=== PATIENT | male | born 1945 | race Caucasian/White ===

== ENCOUNTER 2016-09-30 13:53 | Emergency (ER) | payer OTHER ==
[2016-05-01 12:07] VITALS: Ht 177.8 cm; Wt 68.9 kg
[~2016-09-30] VITALS: Ht 177.8 cm; Wt 68.9 kg
[~2016-09-30 13:53] MED LIST: ACET1TAB25 PO; ALBU2.5V7 INH; CORCR10 PO; FURO-149 PO; GLU500 PO; LISI-209 PO; RIZA10TA21 PO; ZOLP10TA2 PO
[2016-09-30 13:57] VITALS: BP 157/95; PULSE 88; RESP 16; TEMP 97.5; O2SAT 93; O2SAT 98
[2016-09-30] MEDS ORDERED: methylPREDNISolone SOD SUCC/PF 62.5 MG/ML VIAL IVP ONE (14:00)
[2016-09-30] MEDS ORDERED: IPRATROPIUM/ALBUTEROL SULFATE 3 ML AMPUL.NEB INH ONE (14:00)
--- NOTE | 2016-09-30 14:01 | NUR ---
PLACED IN BED 1
--- NOTE | 2016-09-30 14:04 | NUR ---
Patient brought in by with chief complaint of shortness of breath this morning. Patient is awake,alert, and oriented x 4, complaining of short of breath, presents labored breathing, O2SAT 92%. No other complaints/injury per patient, none noted.
--- NOTE | 2016-09-30 14:06 | NUR ---
Dr. Ocampo at bedside examining patient. New orders received.
[2016-09-30 14:45] LABS: BASOPHILS % (AUTO) 0.5 % (0.0-2.0); EOSINOPHILS # (AUTO) 2.5 K/uL (0.0-0.4); EOSINOPHILS % (AUTO) 31.5 % (0.0-4.0); HEMATOCRIT 43.8 % (36-54); HEMOGLOBIN 14.6 g/dL (14.0-18.0); LYMPHOCYTES % (AUTO) 12.2 % (20.5-51.5); MEAN CORPUSCULAR HEMOGLOBIN 32 pg (27-31); MEAN CORPUSCULAR HGB CONC 33 % (32-36); MEAN CORPUSCULAR VOLUME 97 fL (79.0-98.0); MONOCYTES # (AUTO) 0.5 K/uL (0.0-1.0); MONOCYTES % (AUTO) 6.1 % (1.7-9.3); NEUTROPHILS % (AUTO) 49.7 % (40.0-70.0); PLATELET COUNT (AUTO) 231 K/uL (130-430); RED BLOOD CELL COUNT(AUTO) 4.53 MIL/uL (4.2-6.2); RED CELL DISTRIBUTION WIDTH 12.2 % (9.0-15.0)
[2016-09-30 14:49] LABS: CALCIUM 9.8 mg/dL (8.4-11.0); CREATININE 1.31 mg/dL (0.55-1.30); POTASSIUM 4.3 mmol/L (3.5-5.1)
[2016-09-30 14:51] LABS: INR 1.1 (0.80-1.20); PROTHROMBIN TIME 11.7 SECS (9.5-12.5)
[2016-09-30 14:53] LABS: ALBUMIN 4.5 g/dL (3.4-4.8); TOTAL BILIRUBIN 0.5 mg/dL (0.0-1.0); TOTAL PROTEIN, SERUM 8.6 g/dL (6.4-8.3)
--- NOTE | 2016-09-30 14:56 | NUR ---
Medicated as ordered.
[2016-09-30 15:30] VITALS: BP 157/95; PULSE 88; RESP 16; TEMP 97.5; O2SAT 93
--- NOTE | 2016-09-30 17:35 | NUR ---
Patient given written and verbal discharge instructions and verbalizes understanding. ER MD discussed with patient the results and treatment provided. Given copies of tests performed in ER. Patient in stable condition. ID arm band removed. IV catheter removed intact and dressing applied, no active bleeding. Rx of proair, azithromycin,and prednisone given. Opportunity for questions provided and answered.
== END 2016-09-30 15:30 | disposition home or self-care (01) ==
LOC: SED 13:53
DX: J44.1 Chronic obstructive pulmonary disease with (acute) exacerbation (principal); E11.9 Type 2 diabetes mellitus without complications; I10 Essential (primary) hypertension; Z86.73 Personal history of transient ischemic attack (TIA), and cerebral infarction without residual deficits
CPT/HCPCS: 36415; 71010; 80053; 83605; 83880; 84484; 85025; 85379; 85610; 85730; 87040; 93005; 94640; 96374; 99285; J2930

== ENCOUNTER 2016-10-19 18:25 | Emergency (ER) | payer OTHER ==
[~2016-10-19] VITALS: Ht 175.3 cm; Wt 66.7 kg
[~2016-10-19 18:25] MED LIST changes: -ACET1TAB25 PO
[2016-10-19 18:29] VITALS: BP_SYST 154
[2016-10-19 18:58] LABS: HEMATOCRIT 39.5 % (36-54); HEMOGLOBIN 13.1 g/dL (14.0-18.0); MEAN CORPUSCULAR HEMOGLOBIN 32 pg (27-31); MEAN CORPUSCULAR HGB CONC 33 % (32-36); MEAN CORPUSCULAR VOLUME 96 fL (79.0-98.0); PLATELET COUNT (AUTO) 269 K/uL (130-430); RED BLOOD CELL COUNT(AUTO) 4.12 MIL/uL (4.2-6.2); RED CELL DISTRIBUTION WIDTH 11.9 % (9.0-15.0); WHITE BLOOD COUNT (AUTO) 6.5 K/uL (4.8-10.8)
[2016-10-19] MEDS ORDERED: methylPREDNISolone SOD SUCC/PF 62.5 MG/ML VIAL IVP ONE (19:00)
[2016-10-19] MEDS ORDERED: IPRATROPIUM/ALBUTEROL SULFATE 3 ML AMPUL.NEB INH ONE ×2 (19:00→20:15)
[2016-10-19 19:04] LABS: BLOOD GAS PH 7.422 (7.350-7.450)
[2016-10-19 19:05] LABS: ABG TOTAL HEMOGLOBIN 14.2 G/dL (12.0-18.0); BLOOD GAS BASE EXCESS 2.2 mmol/L (-3.0-3.0); BLOOD GAS COHb% 0.9 % (0.5-1.5); BLOOD GAS HHB 10.8 % (0.0-6.0)
[2016-10-19 19:12] LABS: CALCIUM 9.2 mg/dL (8.4-11.0); CREATININE 1.48 mg/dL (0.55-1.30); POTASSIUM 4.2 mmol/L (3.5-5.1)
[2016-10-19 19:15] LABS: ATYPICAL LYMPHOCYTES % 0 % (0-0); BAND % (MANUAL) 0 % (0-6); BASOPHILS % (MANUAL) 0 % (0-2); EOSINOPHILS % (MANUAL) 21 % (0-7); LYMPHOCYTES % (MANUAL) 18 % (20-46); MONOCYTES % (MANUAL) 5 % (0-11)
[2016-10-19 19:16] LABS: ALBUMIN 4.2 g/dL (3.4-4.8); TOTAL BILIRUBIN 0.4 mg/dL (0.0-1.0); TOTAL PROTEIN, SERUM 7.7 g/dL (6.4-8.3)
[2016-10-19 21:05] VITALS: BP_SYST 135
== END 2016-10-19 21:05 | disposition home or self-care (01) ==
LOC: SED 18:25
DX: J44.1 Chronic obstructive pulmonary disease with (acute) exacerbation (principal); E11.9 Type 2 diabetes mellitus without complications; I10 Essential (primary) hypertension; Z86.73 Personal history of transient ischemic attack (TIA), and cerebral infarction without residual deficits; Z87.891 Personal history of nicotine dependence
CPT/HCPCS: 36415; 36600; 71010; 80053; 82803; 83605; 83880; 84484; 85007; 85027; 87040; 93005; 94640; 96374; 99285; J2930

== ENCOUNTER 2017-02-18 10:52 | Emergency (ER) | payer OTHER ==
[~2017-02-18] VITALS: Ht 177.8 cm; Wt 73.0 kg
[2017-02-18 11:00] VITALS: BP_SYST 149
--- NOTE | 2017-02-18 11:06 | NUR ---
Placed in room 03 . Placed on radiation monitor, blood pressure machine and pulse oximeter. To gown for exam. Side rails up. Report given to Henry.
--- NOTE | 2017-02-18 11:15 | NUR ---
BEST Echavarria at bedside examining patient.
[2017-02-18] MEDS ORDERED: IPRATROPIUM/ALBUTEROL SULFATE 3 ML AMPUL.NEB ONE (11:19)
--- NOTE | 2017-02-18 11:22 | NUR ---
Medication reconciliation completed with information provided by patient. Any prior medication reconciliation on file was reviewed and corrected.
--- NOTE | 2017-02-18 11:25 | NUR ---
Pt brought by self, A&Ox4, pt c/o cough and SOB for 1.5 days, VS WNL, cap refill <3, skin pink and warm ,folows commands.
[2017-02-18] MEDS ORDERED: ALBUTEROL SULFATE 0.083% 2.5 MG/3 ML VIAL.NEB INH ONE (11:45)
[2017-02-18] MEDS ORDERED: IPRATROPIUM BROM 0.5 MG/2.5 ML VIAL.NEB (ATROVENT) INH ONE (11:45)
--- NOTE | 2017-02-18 12:01 | NUR ---
Pt placed on O2 2L as ordered by MD.
[2017-02-18 12:03] LABS: BASOPHILS # (AUTO) 0.1 K/uL (0.0-0.2); BASOPHILS % (AUTO) 1.3 % (0.0-2.0); EOSINOPHILS # (AUTO) 0.1 K/uL (0.0-0.4); EOSINOPHILS % (AUTO) 1.4 % (0.0-4.0); HEMATOCRIT 39.8 % (36-54); HEMOGLOBIN 13.1 g/dL (14.0-18.0); LYMPHOCYTES # (AUTO) 0.9 K/uL (1.0-5.5); LYMPHOCYTES % (AUTO) 11.2 % (20.5-51.5); MEAN CORPUSCULAR HEMOGLOBIN 33 pg (27-31); MEAN CORPUSCULAR HGB CONC 33 % (32-36); MEAN CORPUSCULAR VOLUME 100 fL (79.0-98.0); MONOCYTES # (AUTO) 0.6 K/uL (0.0-1.0); MONOCYTES % (AUTO) 6.6 % (1.7-9.3); NEUTROPHILS # (AUTO) 6.7 K/uL (1.8-7.7); NEUTROPHILS % (AUTO) 79.5 % (40.0-70.0); PLATELET COUNT (AUTO) 224 K/uL (130-430); RED BLOOD CELL COUNT(AUTO) 3.97 MIL/uL (4.2-6.2); WHITE BLOOD COUNT (AUTO) 8.4 K/uL (4.8-10.8)
[2017-02-18 12:12] LABS: CALCIUM 9.1 mg/dL (8.4-11.0); CREATININE 1.4 mg/dL (0.55-1.30)
[2017-02-18 12:14] LABS: ALBUMIN 3.8 g/dL (3.4-4.8); TOTAL BILIRUBIN 0.9 mg/dL (0.0-1.0)
--- NOTE | 2017-02-18 12:15 | NUR ---
Pt informed of pending admission. Pt declined to stay. Dr. Cardoso at bedside to discuss AMA.
[2017-02-18] MEDS ORDERED: LEVOFLOXACIN 500 MG/D5W 100 ML IV ONE (12:30)
[2017-02-18] MEDS ORDERED: NACL 0.9% 1,000 ML IV ONE (12:30)
[2017-02-18] MEDS ORDERED: LEVOFLOXACIN 500 MG TABLET PO ONE (13:00)
--- NOTE | 2017-02-18 13:00 | NUR ---
Pt's medication cancelled and RX to be given w/ [facility].
--- NOTE | 2017-02-18 13:20 | NUR ---
Patient does not wish to proceed with medical care recommended by . Patient given information related to possible complications, up to and including , which could occur as a result of leaving hospital at this time. Patient verbalizes understanding of risks involved leaving against medical advice. Patient has signed AMA form.
[2017-02-18 14:37] VITALS: BP_SYST 149
== END 2017-02-18 13:20 | disposition left against medical advice (07) ==
LOC: SED 10:52
DX: J18.9 Pneumonia, unspecified organism (principal); J44.9 Chronic obstructive pulmonary disease, unspecified; E11.9 Type 2 diabetes mellitus without complications; I10 Essential (primary) hypertension; Z86.73 Personal history of transient ischemic attack (TIA), and cerebral infarction without residual deficits; Z79.899 Other long term (current) drug therapy
CPT/HCPCS: 36415; 71010; 80053; 83605; 83880; 84484; 85025; 87040-TC; 93005; 94640; 99285

== ENCOUNTER 2017-03-26 17:59 | Emergency (ER) | payer OTHER ==
[~2017-03-26] VITALS: Ht 177.8 cm; Wt 67.1 kg
[~2017-03-26 17:59] MED LIST changes: -CORCR10 PO; -FURO-149 PO; -LISI-209 PO
[2017-03-26 18:01] VITALS: BP_SYST 135
[2017-03-26 18:37] LABS: BASOPHILS # (AUTO) 0.2 K/uL (0.0-0.2); BASOPHILS % (AUTO) 2.5 % (0.0-2.0); EOSINOPHILS % (AUTO) 0.2 % (0.0-4.0); HEMATOCRIT 40.8 % (36-54); HEMOGLOBIN 13.3 g/dL (14.0-18.0); LYMPHOCYTES # (AUTO) 0.7 K/uL (1.0-5.5); LYMPHOCYTES % (AUTO) 8.1 % (20.5-51.5); MEAN CORPUSCULAR HEMOGLOBIN 31 pg (27-31); MEAN CORPUSCULAR HGB CONC 33 % (32-36); MEAN CORPUSCULAR VOLUME 96 fL (79.0-98.0); MONOCYTES # (AUTO) 0.6 K/uL (0.0-1.0); MONOCYTES % (AUTO) 6.9 % (1.7-9.3); NEUTROPHILS # (AUTO) 6.9 K/uL (1.8-7.7); NEUTROPHILS % (AUTO) 82.3 % (40.0-70.0); PLATELET COUNT (AUTO) 244 K/uL (130-430); RED BLOOD CELL COUNT(AUTO) 4.27 MIL/uL (4.2-6.2); RED CELL DISTRIBUTION WIDTH 14.5 % (9.0-15.0); WHITE BLOOD COUNT (AUTO) 8.4 K/uL (4.8-10.8)
[2017-03-26] MEDS ORDERED: ALBUTEROL SULFATE 0.083% 2.5 MG/3 ML VIAL.NEB INH ONE (18:45)
[2017-03-26] MEDS ORDERED: methylPREDNISolone SOD SUCC/PF 62.5 MG/ML VIAL IVP ONE (18:45)
[2017-03-26] MEDS ORDERED: IPRATROPIUM BROM 0.5 MG/2.5 ML VIAL.NEB (ATROVENT) INH ONE (18:45)
[2017-03-26 18:59] LABS: CREATININE 1.27 mg/dL (0.55-1.30); POTASSIUM 4.5 mmol/L (3.5-5.1)
[2017-03-26 19:09] LABS: ALBUMIN 3.6 g/dL (3.4-4.8); TOTAL BILIRUBIN 1.4 mg/dL (0.0-1.0)
[2017-03-26] MEDS ORDERED: ONDANSETRON 4 MG ODT TAB PO ONE (19:45)
== END 2017-03-26 19:52 | disposition left against medical advice (07) ==
LOC: SED 17:59
DX: J44.1 Chronic obstructive pulmonary disease with (acute) exacerbation (principal); E11.9 Type 2 diabetes mellitus without complications; I10 Essential (primary) hypertension
CPT/HCPCS: 36415; 36600; 71010; 80053; 82803; 83880; 84484; 85025; 93005; 94640; 96374; 99285; J2930

== ENCOUNTER 2017-04-27 14:54 | Emergency (ER) | payer OTHER ==
[~2017-04-27] VITALS: Ht 177.8 cm; Wt 81.6 kg
[2017-04-27 15:15] VITALS: BP_SYST 114
[2017-04-27] MEDS ORDERED: fentaNYL CITRATE/PF 100 MCG/2 ML AMP IM ONE (16:00)
[2017-04-27 16:29] LABS: BILIRUBIN,URINE NEGATIVE (NEGATIVE); BLOOD, URINE NEGATIVE (NEGATIVE); CLARITY/URINE CLEAR (CLEAR); COLOR,URINE YELLOW (YELLOW); GLUCOSE,URINE NEGATIVE (NEGATIVE); KETONES,URINE NEGATIVE (NEGATIVE); LEUKOCYTE ESTERASE ,URINE NEGATIVE (NEGATIVE); NITRITE, URINE NEGATIVE (NEGATIVE); PROTEIN URINE NEGATIVE (NEGATIVE); UROBILINOGEN,URINE 0.2 (0.2-1.0)
[2017-04-27] MEDS ORDERED: FUROSEMIDE 20 MG TABLET PO ONE (16:45)
[2017-04-27 17:38] VITALS: BP_SYST 125
== END 2017-04-27 17:38 | disposition home or self-care (01) ==
LOC: SED 14:54
DX: R33.9 Retention of urine, unspecified (principal); N50.89 Other specified disorders of the male genital organs; L03.115 Cellulitis of right lower limb; J44.9 Chronic obstructive pulmonary disease, unspecified; E11.9 Type 2 diabetes mellitus without complications; I10 Essential (primary) hypertension; Z86.73 Personal history of transient ischemic attack (TIA), and cerebral infarction without residual deficits
CPT/HCPCS: 51702; 81003; 96374; 99284; J3010

== ENCOUNTER 2017-07-27 21:54 | Emergency (ER) | payer OTHER ==
[~2017-07-27] VITALS: Ht 175.3 cm; Wt 73.0 kg
[~2017-07-27 21:54] MED LIST changes: +ASA81 PO; +CARV12.548 PO; +DOXY100T2 PO; +FURO-149 PO; +GABA-529 PO; -GLU500 PO; +LIP10 PO; +LISI-600 PO; +METF-509 PO; +ONDA4TAB5 PO; +RANI-281 PO; -RIZA10TA21 PO; +TRAM50TA92 PO; +TYC3 PO; -ZOLP10TA2 PO
[2017-07-27 22:00] VITALS: BP_SYST 124
--- NOTE | 2017-07-27 22:04 | NUR ---
Patient triaged and placed in waiting room. VSS and patient appears in no acute distress at this time. Accompanied by , awaiting available bed, and MD notified of need for MSE.
--- NOTE | 2017-07-27 22:12 | NUR ---
Pt states that he was recently discharged from the hospital and today family stated blood sugar was 550 when they checked it. Pt states he is in no pain or discomfort. Will continue to monitor. No distress noted.
--- NOTE | 2017-07-27 22:15 | NUR ---
Patient to ER bed 01 to gown for evaluation. Side rails up. Report given to JONATAN Nowak
[2017-07-27] MEDS ORDERED: NACL 0.9% 1,000 ML IV ONE (22:22)
--- NOTE | 2017-07-27 22:30 | NUR ---
# 20 gauge angiocath placed to R hand. Use of asceptic technique. Opsite placed over site. Blood return noted. Flushed with 10 cc of normal saline. No evidence of infiltration noted. Patient tolerated well.
--- NOTE | 2017-07-27 22:40 | NUR ---
ER Dr. Christina at bedside examining patient.
[2017-07-27 22:59] LABS: WHITE BLOOD COUNT (AUTO) 6.5 K/uL (4.8-10.8)
[2017-07-27 23:04] LABS: HEMATOCRIT 33.5 % (36-54); MEAN CORPUSCULAR HEMOGLOBIN 33 pg (27-31); MEAN CORPUSCULAR HGB CONC 33 % (32-36); MEAN CORPUSCULAR VOLUME 100 fL (79.0-98.0); PLATELET COUNT (AUTO) 99 K/uL (130-430); RED BLOOD CELL COUNT(AUTO) 3.35 MIL/uL (4.2-6.2); RED CELL DISTRIBUTION WIDTH 20.2 % (9.0-15.0)
[2017-07-27 23:16] LABS: ANION GAP 11 (5-15); CALCIUM 8.4 mg/dL (8.4-11.0); CHLORIDE 91 mmol/L (98-107); CREATININE 1.83 mg/dL (0.55-1.30); POTASSIUM 4.5 mmol/L (3.5-5.1); SODIUM SERUM 130 mmol/L (136-145); UREA NITROGEN, BLOOD 80 mg/dL (8-21)
[2017-07-27 23:22] LABS: ALANINE AMINOTRANSFERASE 30 U/L (12-78); ALBUMIN 2.9 g/dL (3.4-4.8); ASPARTATE AMINOTRANSFERASE 20 U/L (10-37); TOTAL BILIRUBIN 0.7 mg/dL (0.0-1.0)
[2017-07-27 23:26] LABS: GLUCOSE 522 mg/dL (70-99)
[2017-07-27 23:27] LABS: ACETONE, SERUM NEGATIVE (NEGATIVE)
[2017-07-27 23:29] LABS: BAND % (MANUAL) 6 % (0-6); LYMPHOCYTES % (MANUAL) 5 % (20-46)
[2017-07-27 23:30] LABS: ATYPICAL LYMPHOCYTES % 0 % (0-0); BASOPHILS % (MANUAL) 0 % (0-2); EOSINOPHILS % (MANUAL) 0 % (0-7); MONOCYTES % (MANUAL) 2 % (0-11)
[2017-07-27] MEDS ORDERED: INSULIN REGULAR, HUMAN 10 UNITS/0.1 ML INJ IVP ONE (23:45)
[2017-07-27] MEDS ORDERED: PIPERACILLIN/TAZOBACTAM 3.375 GM/VIAL (ZOSYN) IV ONE ×2 (23:56→23:57)
[2017-07-28] MEDS ORDERED: PIPERACILLIN/TAZO 3.375 GM in NS 50 ML IV ONE ×2
[2017-07-28] MEDS ORDERED: INSULIN REGULAR, HUMAN 10 UNITS/0.1 ML INJ IVP ONE ×2 (01:30→01:45)
[2017-07-28 02:24] VITALS: BP_SYST 118
--- NOTE | 2017-07-28 02:24 | NUR ---
Patient given written and verbal discharge instructions and verbalizes understanding. ER MD discussed with patient the results and treatment provided. Patient in stable condition. ID arm band removed. IV catheter removed intact and dressing applied, no active bleeding. Rx of Augmentin given. Patient educated on pain management and to follow up with PMD. Pain Scale 0/10. Opportunity for questions provided and answered. Medication side effect fact sheet provided.
== END 2017-07-28 02:24 | disposition home or self-care (01) ==
LOC: SED 21:54
DX: E11.65 Type 2 diabetes mellitus with hyperglycemia (principal); J18.9 Pneumonia, unspecified organism; R79.89 Other specified abnormal findings of blood chemistry; J44.9 Chronic obstructive pulmonary disease, unspecified; I10 Essential (primary) hypertension; Z86.73 Personal history of transient ischemic attack (TIA), and cerebral infarction without residual deficits; Z79.82 Long term (current) use of aspirin; Z79.899 Other long term (current) drug therapy; Z88.8 Allergy status to other drugs, medicaments and biological substances
CPT/HCPCS: 36415; 71045; 80053; 82009; 82962; 84484; 85007; 85027; 87040; 96361; 96365; 96375; 96376; 99285; J2543; J1815

== ENCOUNTER 2018-01-14 13:39 | Inpatient (IN) | payer OTHER ==
[~2018-01-14] VITALS: Ht 175.3 cm; Wt 65.8 kg
[~2018-01-14 13:39] MED LIST changes: +DOCU-144 PO; -DOXY100T2 PO; +ELET20TA PO; -GABA-529 PO; +INSU100V9 SUBCUT; -LISI-600 PO; +METO2.5T6 PO; -ONDA4TAB5 PO; -RANI-281 PO; +SACU1TAB PO; +TAMS-11 PO; +[UNRECOGNIZED DRUG - OTHER] TP
[2018-01-14 13:40] VITALS: BP_SYST 95
[2018-01-14] MEDS ORDERED: ALBUTEROL SULFATE 0.083% 2.5 MG/3 ML VIAL.NEB INH ONE ×2 (14:00→17:15)
[2018-01-14] MEDS ORDERED: LEVOFLOXACIN 500 MG/D5W 100 ML IV ONE (14:00)
[2018-01-14 14:21] LABS: BASOPHILS # (AUTO) 0.1 K/uL (0.0-0.2); BASOPHILS % (AUTO) 1.7 % (0.0-2.0); EOSINOPHILS # (AUTO) 0.3 K/uL (0.0-0.4); EOSINOPHILS % (AUTO) 9.3 % (0.0-4.0); HEMATOCRIT 36.3 % (36-54); HEMOGLOBIN 11.7 g/dL (14.0-18.0); LYMPHOCYTES # (AUTO) 0.6 K/uL (1.0-5.5); LYMPHOCYTES % (AUTO) 18.6 % (20.5-51.5); MEAN CORPUSCULAR HEMOGLOBIN 34 pg (27-31); MEAN CORPUSCULAR HGB CONC 32 % (32-36); MEAN CORPUSCULAR VOLUME 104 fL (79.0-98.0); MONOCYTES # (AUTO) 0.3 K/uL (0.0-1.0); MONOCYTES % (AUTO) 10.1 % (1.7-9.3); NEUTROPHILS # (AUTO) 2.1 K/uL (1.8-7.7); NEUTROPHILS % (AUTO) 60.3 % (40.0-70.0); PLATELET COUNT (AUTO) 105 K/uL (130-430); RED BLOOD CELL COUNT(AUTO) 3.48 MIL/uL (4.2-6.2); RED CELL DISTRIBUTION WIDTH 14.6 % (9.0-15.0); WHITE BLOOD COUNT (AUTO) 3.4 K/uL (4.8-10.8)
[2018-01-14 14:29] LABS: ANION GAP 9 (5-15); CALCIUM 8.8 mg/dL (8.4-11.0); CHLORIDE 97 mmol/L (98-107); CREATININE 4.41 mg/dL (0.55-1.30); GLUCOSE 112 mg/dL (70-99); POTASSIUM 5.5 mmol/L (3.5-5.1); SODIUM SERUM 134 mmol/L (136-145); UREA NITROGEN, BLOOD 40 mg/dL (8-21)
[2018-01-14 14:34] LABS: ALANINE AMINOTRANSFERASE 11 U/L (12-78); ALBUMIN 3.4 g/dL (3.4-4.8); ASPARTATE AMINOTRANSFERASE 12 U/L (10-37); TOTAL BILIRUBIN 0.7 mg/dL (0.0-1.0)
[2018-01-14 14:39] LABS: INR 1.2 (0.80-1.20); PROTHROMBIN TIME 12.6 SECS (9.5-12.5)
[2018-01-14] MEDS ORDERED: SODIUM BICARBONATE 8.4% JECT 50 MEQ/50 ML SYRINGE IVP ONE (14:45)
[2018-01-14] MEDS ORDERED: CALCIUM CHLORIDE 1 GM/10ML VIAL (13.6 mEq Ca++/VIAL) IVP ONE (14:45)
[2018-01-14] MEDS ORDERED: SODIUM POLYSTYRENE SULFONATE 15 GM/60 ML UDBTL PO ONE (14:45)
[2018-01-14] MEDS ORDERED: INSULIN REGULAR, HUMAN 10 UNITS/0.1 ML INJ IVP ONE (14:45)
[2018-01-14] MEDS ORDERED: DEXTROSE 50% JECT 50 ML DISP.SYRIN IVP ONE (14:45)
[2018-01-14] MEDS ORDERED: ASPI-1155 PO (15:56)
[2018-01-14] MEDS ORDERED: CARV12.548 PO (15:56)
[2018-01-14] MEDS ORDERED: TAMS-11 PO (15:56)
[2018-01-14] MEDS ORDERED: TYC3 PO (15:56)
[2018-01-14] MEDS ORDERED: CALCIUM CHLORIDE 1 GM/10 ML DISP.SYRIN (14 mEq Ca++/SYR) ONE (16:05)
[2018-01-14 16:23] VITALS: BP_SYST 116
[2018-01-14 16:48] VITALS: BP_SYST 116
[2018-01-14] MEDS ORDERED: IPRATROPIUM BROM 0.5 MG/2.5 ML VIAL.NEB (ATROVENT) INH ONE (17:15)
[2018-01-14] MEDS ORDERED: methylPREDNISolone SOD SUCC/PF 62.5 MG/ML VIAL IVP ONE (17:15)
[2018-01-14] MEDS ORDERED: ALBUTEROL SULFATE 0.083% 2.5 MG/3 ML VIAL.NEB INH PRN (17:15)
[2018-01-14] MEDS ORDERED: IPRATROPIUM BROM 0.5 MG/2.5 ML VIAL.NEB (ATROVENT) INH PRN (17:15)
[2018-01-14] MEDS ORDERED: HEPARIN SODIUM,PORCINE 5000 UNITS/ML VIAL IVP ONE (17:30)
[2018-01-14] MEDS: cefTRIAXone 1 GM in D5W 50 ML IV SCH (17:56)
[2018-01-14 20:00] VITALS: BP_SYST 120
[2018-01-14] MEDS: ALBUTEROL SULFATE 0.083% 2.5 MG/3 ML VIAL.NEB INH SCH (20:02)
[2018-01-14] MEDS: IPRATROPIUM BROM 0.5 MG/2.5 ML VIAL.NEB (ATROVENT) INH SCH (20:03)
[2018-01-14] MEDS: AZITHROMYCIN 500 MG in NS 250 ML IV SCH (22:01)
[2018-01-14] MEDS: methylPREDNISolone SOD SUCC/PF 62.5 MG/ML VIAL IVP SCH (22:01)
[2018-01-15] MEDS: IPRATROPIUM BROM 0.5 MG/2.5 ML VIAL.NEB (ATROVENT) INH SCH ×3 (00:30→19:26)
[2018-01-15] MEDS: ALBUTEROL SULFATE 0.083% 2.5 MG/3 ML VIAL.NEB INH SCH ×4 (00:30→19:25)
[2018-01-15 00:50] VITALS: BP_SYST 131
[2018-01-15] MEDS: methylPREDNISolone SOD SUCC/PF 62.5 MG/ML VIAL IVP SCH ×3 (05:57→22:04)
[2018-01-15 06:28] LABS: ALANINE AMINOTRANSFERASE 12 U/L (12-78); ALBUMIN 3.1 g/dL (3.4-4.8); ANION GAP 10 (5-15); ASPARTATE AMINOTRANSFERASE 14 U/L (10-37); CALCIUM 8.6 mg/dL (8.4-11.0); CHLORIDE 99 mmol/L (98-107); GLUCOSE 129 mg/dL (70-99); POTASSIUM 4.7 mmol/L (3.5-5.1); SODIUM SERUM 138 mmol/L (136-145); TOTAL BILIRUBIN 0.8 mg/dL (0.0-1.0); UREA NITROGEN, BLOOD 27 mg/dL (8-21)
[2018-01-15 06:38] LABS: BASOPHILS % (AUTO) 1.7 % (0.0-2.0); EOSINOPHILS % (AUTO) 0.4 % (0.0-4.0); HEMATOCRIT 36.2 % (36-54); LYMPHOCYTES # (AUTO) 0.2 K/uL (1.0-5.5); LYMPHOCYTES % (AUTO) 10.4 % (20.5-51.5); MEAN CORPUSCULAR HEMOGLOBIN 34 pg (27-31); MEAN CORPUSCULAR HGB CONC 33 % (32-36); MEAN CORPUSCULAR VOLUME 103 fL (79.0-98.0); MONOCYTES # (AUTO) 0.1 K/uL (0.0-1.0); MONOCYTES % (AUTO) 2.7 % (1.7-9.3); NEUTROPHILS % (AUTO) 84.8 % (40.0-70.0); PLATELET COUNT (AUTO) 95 K/uL (130-430); RED BLOOD CELL COUNT(AUTO) 3.53 MIL/uL (4.2-6.2); RED CELL DISTRIBUTION WIDTH 14.4 % (9.0-15.0); WHITE BLOOD COUNT (AUTO) 2.3 K/uL (4.8-10.8)
[2018-01-15 08:20] VITALS: BP_SYST 110
[2018-01-15 11:08] VITALS: BP_SYST 131
[2018-01-15 15:32] VITALS: BP_SYST 118
[2018-01-15] MEDS: cefTRIAXone 1 GM in D5W 50 ML IV SCH (17:43)
[2018-01-15 19:01] VITALS: BP_SYST 143
[2018-01-15 20:40] VITALS: BP_SYST 122
[2018-01-15] MEDS: AZITHROMYCIN 500 MG in NS 250 ML IV SCH (20:42)
[2018-01-15] MEDS ORDERED: HYDROcodone/ACETAMIN 5-325 MG TAB (NORCO/ VICODIN) PO PRN (22:45)
[2018-01-16 00:19] VITALS: BP_SYST 118
[2018-01-16] MEDS: ALBUTEROL SULFATE 0.083% 2.5 MG/3 ML VIAL.NEB INH SCH ×4 (01:00→19:00)
[2018-01-16] MEDS: IPRATROPIUM BROM 0.5 MG/2.5 ML VIAL.NEB (ATROVENT) INH SCH ×4 (01:00→19:00)
[2018-01-16] MEDS: methylPREDNISolone SOD SUCC/PF 62.5 MG/ML VIAL IVP SCH (05:24)
[2018-01-16 08:05] VITALS: BP_SYST 119
[2018-01-16] MEDS ORDERED: HEPARIN SODIUM,PORCINE 5000 UNITS/ML VIAL SUBCUT ONE (10:30)
[2018-01-16 12:00] VITALS: BP_SYST 142
[2018-01-16 16:00] VITALS: BP_SYST 141
[2018-01-16] MEDS: cefTRIAXone 1 GM in D5W 50 ML IV SCH (17:45)
[2018-01-16] MEDS: PREDNISONE 20 MG TABLET PO SCH (17:45)
[2018-01-16 20:00] VITALS: BP_SYST 127
[2018-01-16] MEDS: AZITHROMYCIN 500 MG in NS 250 ML IV SCH (20:16)
[2018-01-16 23:06] VITALS: BP_SYST 116
[2018-01-17] MEDS: IPRATROPIUM BROM 0.5 MG/2.5 ML VIAL.NEB (ATROVENT) INH SCH ×3 (01:00→13:00)
[2018-01-17] MEDS: ALBUTEROL SULFATE 0.083% 2.5 MG/3 ML VIAL.NEB INH SCH ×3 (01:00→13:00)
[2018-01-17 08:00] VITALS: BP_SYST 137
[2018-01-17] MEDS: PREDNISONE 20 MG TABLET PO SCH (08:52)
[2018-01-17 10:59] VITALS: BP_SYST 137
[2018-01-17 12:00] VITALS: BP_SYST 135
[2018-01-17 16:00] VITALS: BP_SYST 144
[2018-01-17] MEDS ORDERED: PREDNISONE 20 MG TABLET PO SCH (18:00)
== END 2018-01-17 16:00 | disposition home health service (06) | DRG 193 ==
LOC: SED 13:39 → STU 14:48
PROVIDERS: ADMIT Internal Medicine Hospice and Palliative Medicine; ATTEND Internal Medicine Hospice and Palliative Medicine
PROC: 5A1D70Z Performance of Urinary Filtration, Intermittent, Less than 6 Hours Per Day (ICD-10-PCS; principal; 2018-01-14)
PROC: 5A09357 Assistance with Respiratory Ventilation, Less than 24 Consecutive Hours, Continuous Positive Airway Pressure (ICD-10-PCS; 2018-01-14)
PROC: 5A1D70Z Performance of Urinary Filtration, Intermittent, Less than 6 Hours Per Day (ICD-10-PCS; 2018-01-16)
DX: J18.9 Pneumonia, unspecified organism (principal); J96.22 Acute and chronic respiratory failure with hypercapnia; N18.6 End stage renal disease; I50.23 Acute on chronic systolic (congestive) heart failure; J44.1 Chronic obstructive pulmonary disease with (acute) exacerbation; I42.9 Cardiomyopathy, unspecified; I13.2 Hypertensive heart and chronic kidney disease with heart failure and with stage 5 chronic kidney disease, or end stage renal disease; E87.2 Acidosis; J44.0 Chronic obstructive pulmonary disease with (acute) lower respiratory infection; E87.5 Hyperkalemia; L97.519 Non-pressure chronic ulcer of other part of right foot with unspecified severity; E11.22 Type 2 diabetes mellitus with diabetic chronic kidney disease; L03.031 Cellulitis of right toe; I25.10 Atherosclerotic heart disease of native coronary artery without angina pectoris; E11.51 Type 2 diabetes mellitus with diabetic peripheral angiopathy without gangrene; E78.5 Hyperlipidemia, unspecified; E11.42 Type 2 diabetes mellitus with diabetic polyneuropathy; Z86.73 Personal history of transient ischemic attack (TIA), and cerebral infarction without residual deficits; Z99.81 Dependence on supplemental oxygen; Z99.2 Dependence on renal dialysis; I25.2 Old myocardial infarction; Z87.891 Personal history of nicotine dependence; Z88.8 Allergy status to other drugs, medicaments and biological substances; Z79.899 Other long term (current) drug therapy; Z79.82 Long term (current) use of aspirin
CPT/HCPCS: 36415; 36600; 71045; 80053; 82803-TC; 83605; 83880; 84484; 85025; 85610-TC; 87040-TC; 87081; 90935; 90937; 93005; 94640; 94660; 94760; 96365; 96375; 97116-GP; 97530-GP; 99285; J0456; J0696; J1644; J1815; J1956; J2930; J7030; J7050; J7060; J7512; J7613

== ENCOUNTER 2018-08-13 20:36 | Inpatient (IN) | payer OTHER ==
[~2018-08-13] VITALS: Ht 175.3 cm; Wt 68.2 kg
[~2018-08-13 20:36] MED LIST changes: +ASPI-1155 PO; -METF-509 PO
[2018-08-13 20:38] VITALS: BP_SYST 112
[2018-08-13] MEDS ORDERED: NACL 0.9% 1,000 ML IV ONE (20:40)
[2018-08-13] MEDS ORDERED: IPRATROPIUM BROM 0.5 MG/2.5 ML VIAL.NEB (ATROVENT) IH ONE (20:45)
[2018-08-13] MEDS ORDERED: methylPREDNISolone SOD SUCC/PF 62.5 MG/ML VIAL IVP ONE (20:45)
[2018-08-13] MEDS ORDERED: ALBUTEROL SULFATE 0.083% 2.5 MG/3 ML VIAL.NEB IH ONE (20:45)
[2018-08-13] MEDS ORDERED: ASPIRIN 81 MG TAB.CHEW PO ONE (20:45)
[2018-08-13 21:02] LABS: HEMATOCRIT 37.2 % (36-54); MEAN CORPUSCULAR HEMOGLOBIN 32 pg (27-31); MEAN CORPUSCULAR HGB CONC 32 % (32-36); MEAN CORPUSCULAR VOLUME 100 fL (79.0-98.0); RED BLOOD CELL COUNT(AUTO) 3.71 MIL/uL (4.2-6.2); WHITE BLOOD COUNT (AUTO) 7.5 K/uL (4.8-10.8)
[2018-08-13 21:03] LABS: BASOPHILS # (AUTO) 0.3 K/uL (0.0-0.2); BASOPHILS % (AUTO) 3.9 % (0.0-2.0); EOSINOPHILS # (AUTO) 0.5 K/uL (0.0-0.4); LYMPHOCYTES # (AUTO) 0.6 K/uL (1.0-5.5); LYMPHOCYTES % (AUTO) 7.9 % (20.5-51.5); MONOCYTES # (AUTO) 0.6 K/uL (0.0-1.0); MONOCYTES % (AUTO) 7.8 % (1.7-9.3); NEUTROPHILS # (AUTO) 5.5 K/uL (1.8-7.7); NEUTROPHILS % (AUTO) 73.4 % (40.0-70.0); PLATELET COUNT (AUTO) 173 K/uL (130-430); RED CELL DISTRIBUTION WIDTH 14.9 % (9.0-15.0)
[2018-08-13 21:15] LABS: ANION GAP 8 (5-15); CALCIUM 9.1 mg/dL (8.4-11.0); CHLORIDE 92 mmol/L (98-107); GLUCOSE 104 mg/dL (70-99); SODIUM SERUM 127 mmol/L (136-145); UREA NITROGEN, BLOOD 70 mg/dL (8-21)
[2018-08-13 21:17] LABS: INR 1.4 (0.80-1.20); PROTHROMBIN TIME 13.7 SECS (9.5-12.5)
[2018-08-13 21:18] LABS: POTASSIUM 7.6 mmol/L (3.5-5.1)
[2018-08-13 21:19] LABS: ALANINE AMINOTRANSFERASE 20 U/L (12-78); ALBUMIN 3.2 g/dL (3.4-4.8); AMYLASE 44 U/L (0-100); ASPARTATE AMINOTRANSFERASE 35 U/L (10-37); LIPASE 129 U/L (73-393); TOTAL BILIRUBIN 0.7 mg/dL (0.0-1.0)
[2018-08-13] MEDS ORDERED: WARF5TAB2 PO (21:21)
[2018-08-13] MEDS ORDERED: TAMS-11 PO (21:21)
[2018-08-13] MEDS ORDERED: TAMS0.4C96 PO (21:21)
[2018-08-13] MEDS ORDERED: NL TP (21:21)
[2018-08-13] MEDS ORDERED: CALC667T5 PO (21:21)
[2018-08-13] MEDS ORDERED: HYDR-3698 PO (21:21)
[2018-08-13] MEDS ORDERED: [UNRECOGNIZED DRUG - OTHER] TP (21:21)
[2018-08-13] MEDS ORDERED: TYLENOL-CODEINE PO (21:21)
[2018-08-13] MEDS ORDERED: FERR210T PO (21:28)
[2018-08-13 22:37] LABS: ANION GAP 7 (5-15); CALCIUM 8.8 mg/dL (8.4-11.0); CHLORIDE 94 mmol/L (98-107); CREATININE 5.58 mg/dL (0.55-1.30); GLUCOSE 94 mg/dL (70-99); SODIUM SERUM 128 mmol/L (136-145); UREA NITROGEN, BLOOD 68 mg/dL (8-21)
[2018-08-13 22:41] LABS: POTASSIUM 7.5 mmol/L (3.5-5.1)
[2018-08-13] MEDS ORDERED: SODIUM POLYSTYRENE SULFONATE 15 GM/60 ML UDBTL PO ONE (22:45)
[2018-08-13] MEDS ORDERED: DEXTROSE 50% JECT 50 ML DISP.SYRIN IVP ONE (22:45)
[2018-08-13] MEDS ORDERED: SODIUM BICARBONATE 8.4% JECT 50 MEQ/50 ML SYRINGE IVP ONE (22:45)
[2018-08-13] MEDS ORDERED: CALCIUM GLUCONATE 1 GM/10 ML VIAL IVP ONE (22:45)
[2018-08-13] MEDS ORDERED: INSULIN REGULAR, HUMAN 10 UNITS/0.1 ML INJ IVP ONE (22:45)
[2018-08-13] MEDS ORDERED: INSULIN REGULAR, HUMAN 100 UNITS/ML, 10 ML VIAL (novoLIN R) ONE (23:00)
[2018-08-14] MEDS ORDERED: LEVOFLOXACIN 250 MG/D5W 50 ML IV ONE (00:45)
[2018-08-14 01:07] VITALS: BP_SYST 111
[2018-08-14] MEDS: IPRATROPIUM/ALBUTEROL SULFATE 3 ML AMPUL.NEB (DUONEB) INH PRN ×4 (02:02→21:06)
[2018-08-14 02:06] VITALS: BP_SYST 111
[2018-08-14 08:00] VITALS: BP_SYST 110
[2018-08-14] MEDS ORDERED: LEVOFLOXACIN 250 MG/D5W 50 ML IV SCH ×2 (09:00→21:00)
[2018-08-14 10:15] LABS: HEMOGLOBIN 11.5 g/dL (14.0-18.0); MEAN CORPUSCULAR HEMOGLOBIN 32 pg (27-31); MEAN CORPUSCULAR HGB CONC 32 % (32-36); MEAN CORPUSCULAR VOLUME 99 fL (79.0-98.0); RED BLOOD CELL COUNT(AUTO) 3.64 MIL/uL (4.2-6.2); WHITE BLOOD COUNT (AUTO) 4.3 K/uL (4.8-10.8)
[2018-08-14 10:17] LABS: PLATELET COUNT (AUTO) 151 K/uL (130-430)
[2018-08-14 10:18] LABS: BASOPHILS % (AUTO) 0.3 % (0.0-2.0); EOSINOPHILS % (AUTO) 0.1 % (0.0-4.0); LYMPHOCYTES # (AUTO) 0.1 K/uL (1.0-5.5); LYMPHOCYTES % (AUTO) 1.8 % (20.5-51.5); MONOCYTES % (AUTO) 0.6 % (1.7-9.3); NEUTROPHILS # (AUTO) 4.2 K/uL (1.8-7.7); NEUTROPHILS % (AUTO) 97.2 % (40.0-70.0)
[2018-08-14 10:25] LABS: ANION GAP 11 (5-15); CALCIUM 8.4 mg/dL (8.4-11.0); CHLORIDE 98 mmol/L (98-107); CREATININE 3.73 mg/dL (0.55-1.30); GLUCOSE 138 mg/dL (70-99); POTASSIUM 5.2 mmol/L (3.5-5.1); SODIUM SERUM 136 mmol/L (136-145); UREA NITROGEN, BLOOD 39 mg/dL (8-21)
[2018-08-14] MEDS ORDERED: methylPREDNISolone SOD SUCC/PF 62.5 MG/ML VIAL IVP ONE (10:30)
[2018-08-14 10:31] LABS: ALANINE AMINOTRANSFERASE 24 U/L (12-78); ALBUMIN 2.9 g/dL (3.4-4.8); ASPARTATE AMINOTRANSFERASE 41 U/L (10-37); TOTAL BILIRUBIN 0.7 mg/dL (0.0-1.0)
[2018-08-14] MEDS: cefTRIAXone 1 GM in D5W 50 ML IV SCH (10:58)
[2018-08-14 11:53] VITALS: BP_SYST 130
[2018-08-14] MEDS: AZITHROMYCIN 500 MG in NS 250 ML IV SCH (12:24)
[2018-08-14] MEDS: methylPREDNISolone SOD SUCC/PF 62.5 MG/ML VIAL IVP SCH ×2 (13:25→21:01)
[2018-08-14 15:19] VITALS: BP_SYST 103
[2018-08-14] MEDS ORDERED: SUCRALFATE 1 GM TABLET PO ONE (15:45)
[2018-08-14] MEDS: SUCRALFATE 1 GM TABLET PO SCH (16:49)
[2018-08-14 20:00] VITALS: BP_SYST 111
[2018-08-15] VITALS (7 sets, daily range): BP systolic 88–131
[2018-08-15] MEDS: IPRATROPIUM/ALBUTEROL SULFATE 3 ML AMPUL.NEB (DUONEB) INH PRN ×3 (02:04→18:14)
[2018-08-15] MEDS: methylPREDNISolone SOD SUCC/PF 62.5 MG/ML VIAL IVP SCH ×3 (05:59→21:30)
[2018-08-15] MEDS: SUCRALFATE 1 GM TABLET PO SCH ×2 (06:00→16:53)
[2018-08-15] MEDS: INSULIN REGULAR, HUMAN 100 UNITS/ML, 10 ML VIAL (novoLIN R) SUBCUT PRN ×3 (06:08→20:26)
[2018-08-15] MEDS: cefTRIAXone 1 GM in D5W 50 ML IV SCH (08:20)
[2018-08-15] MEDS: AZITHROMYCIN 500 MG in NS 250 ML IV SCH (09:54)
[2018-08-15] MEDS ORDERED: MIDODRINE HCL 5 MG TABLET (PROAMATINE) PO ONE (11:30)
[2018-08-15] MEDS ORDERED: TEMAZEPAM 15 MG CAPSULE PO PRN (21:15)
[2018-08-16] MEDS: IPRATROPIUM/ALBUTEROL SULFATE 3 ML AMPUL.NEB (DUONEB) INH PRN ×2 (02:20→17:22)
[2018-08-16] MEDS: methylPREDNISolone SOD SUCC/PF 62.5 MG/ML VIAL IVP SCH ×2 (06:20→14:19)
[2018-08-16] MEDS: SUCRALFATE 1 GM TABLET PO SCH ×2 (06:20→16:49)
[2018-08-16] MEDS: INSULIN REGULAR, HUMAN 100 UNITS/ML, 10 ML VIAL (novoLIN R) SUBCUT PRN ×3 (06:28→16:51)
[2018-08-16 08:30] VITALS: BP_SYST 110
[2018-08-16] MEDS: cefTRIAXone 1 GM in D5W 50 ML IV SCH (08:33)
[2018-08-16] MEDS: AZITHROMYCIN 500 MG in NS 250 ML IV SCH (09:43)
[2018-08-16 11:38] VITALS: BP_SYST 105
[2018-08-16 12:16] VITALS: BP_SYST 123
[2018-08-16] MEDS ORDERED: HEPARIN SODIUM,PORCINE 5000 UNITS/ML VIAL MC ONE (16:15)
[2018-08-16 18:03] VITALS: BP_SYST 123
== END 2018-08-16 18:25 | disposition home or self-care (01) | DRG 291 ==
LOC: SED 20:36 → STU 08-14 00:51
PROVIDERS: ADMIT Internal Medicine Hospice and Palliative Medicine; ATTEND Internal Medicine Hospice and Palliative Medicine
PROC: 5A1D70Z Performance of Urinary Filtration, Intermittent, Less than 6 Hours Per Day (ICD-10-PCS; principal; 2018-08-14)
PROC: 5A1D70Z Performance of Urinary Filtration, Intermittent, Less than 6 Hours Per Day (ICD-10-PCS; 2018-08-16)
DX: I13.2 Hypertensive heart and chronic kidney disease with heart failure and with stage 5 chronic kidney disease, or end stage renal disease (principal); J96.20 Acute and chronic respiratory failure, unspecified whether with hypoxia or hypercapnia; N18.6 End stage renal disease; J18.1 Lobar pneumonia, unspecified organism; J81.1 Chronic pulmonary edema; J44.1 Chronic obstructive pulmonary disease with (acute) exacerbation; J90 Pleural effusion, not elsewhere classified; J44.0 Chronic obstructive pulmonary disease with (acute) lower respiratory infection; E87.5 Hyperkalemia; I50.9 Heart failure, unspecified; E11.22 Type 2 diabetes mellitus with diabetic chronic kidney disease; Z87.891 Personal history of nicotine dependence; Z99.2 Dependence on renal dialysis; Z99.81 Dependence on supplemental oxygen; Z88.8 Allergy status to other drugs, medicaments and biological substances; Z79.01 Long term (current) use of anticoagulants; Z79.899 Other long term (current) drug therapy; Z86.73 Personal history of transient ischemic attack (TIA), and cerebral infarction without residual deficits
CPT/HCPCS: 36415; 36600; 71045; 80048; 80053; 82150-TC; 82550-TC; 82803-TC; 82962; 83605; 83690-TC; 83880; 84484; 85025; 85379; 85610-TC; 85730-TC; 87040-TC; 87081; 90935; 90937; 93005; 94640; 94760; 96361; 96365; 96375; 99285; G0378; J0456; J0610; J0696; J1644; J1815; J1956; J2930; J7030; J7050; J7060; J7613; J7620

== ENCOUNTER 2018-08-22 09:00 | Inpatient (IN) | payer OTHER ==
[~2018-08-22] VITALS: Ht 172.7 cm; Wt 66.7 kg
[2018-08-22 09:00] VITALS: BP_SYST 144
[~2018-08-22 09:00] MED LIST changes: -ALBU2.5V7 INH; -ASA81 PO; -ASPI-1155 PO; +CALC667T5 PO; -CARV12.548 PO; -DOCU-144 PO; -ELET20TA PO; +FERR210T PO; -FURO-149 PO; +HYDR-3698 PO; -INSU100V9 SUBCUT; -LIP10 PO; -METO2.5T6 PO; +NL TP; -SACU1TAB PO; +TAMS0.4C96 PO; -TRAM50TA92 PO; -TYC3 PO; +TYLENOL-CODEINE PO; +WARF5TAB2 PO; +[UNRECOGNIZED DRUG - OTHER] TP; -[UNRECOGNIZED DRUG - OTHER] TP
--- NOTE | 2018-08-22 09:01 | NUR ---
BROUGHT BACK TO BED #6 AND TRIAGED. REPORT GIVEN TO MARGOT
--- NOTE | 2018-08-22 09:15 | NUR ---
Patient presented to the ER with C/O severe constipation for 3 days via BLS from home. Patient A&Ox4, afebrile, respirations equal bilat, denies N/V/D pain 01/11. Patient states he has had constipation x3 days, patient states dialysis shunt(ayo Catheter) placed 08/19/18.
--- NOTE | 2018-08-22 09:29 | NUR ---
Portable x-ray at bedside
--- NOTE | 2018-08-22 09:45 | NUR ---
ER at bedside examining patient.
--- NOTE | 2018-08-22 09:45 | NUR ---
Fleet enema given to patient, rectal per order.
[2018-08-22] MEDS ORDERED: SSREG SUBCUT (09:51)
[2018-08-22] MEDS ORDERED: ASPI-1155 PO (09:51)
[2018-08-22] MEDS ORDERED: NACL 0.9% 1,000 ML IV ONE (09:51)
[2018-08-22] MEDS ORDERED: LIP10 PO (09:51)
[2018-08-22] MEDS ORDERED: MORPHINE 4 MG/ML INJ. SYRINGE IVP ONE (10:00)
[2018-08-22] MEDS ORDERED: ONDANSETRON HCL 4 MG/2 ML VIAL IVP ONE (10:00)
[2018-08-22] MEDS ORDERED: NA PHOS,M-B/NA PHOS,DI-BA 118 ML (FLEET ENEMA) RC ONE (10:00)
--- NOTE | 2018-08-22 10:00 | NUR ---
Pt off the unit for CT
[2018-08-22] MEDS ORDERED: DOCU-144 PO (10:01)
[2018-08-22] MEDS ORDERED: TYLENOL #4 PO (10:01)
--- NOTE | 2018-08-22 10:15 | NUR ---
Per warehousing technician pt refused CT of abdomen,pt reassured, pt willing to do CT now, MD notified.
--- NOTE | 2018-08-22 10:25 | NUR ---
Pt off the unit for CT x 2, notified
[2018-08-22 10:29] LABS: ANION GAP 10 (5-15); CALCIUM 8.3 mg/dL (8.4-11.0); CHLORIDE 97 mmol/L (98-107); CREATININE 3.62 mg/dL (0.55-1.30); GLUCOSE 234 mg/dL (70-99); HEMATOCRIT 36.6 % (36-54); HEMOGLOBIN 11.6 g/dL (14.0-18.0); MEAN CORPUSCULAR HEMOGLOBIN 32 pg (27-31); MEAN CORPUSCULAR HGB CONC 32 % (32-36); MEAN CORPUSCULAR VOLUME 100 fL (79.0-98.0); PLATELET COUNT (AUTO) 107 K/uL (130-430); POTASSIUM 4.5 mmol/L (3.5-5.1); RED BLOOD CELL COUNT(AUTO) 3.67 MIL/uL (4.2-6.2); RED CELL DISTRIBUTION WIDTH 15.3 % (9.0-15.0); SODIUM SERUM 136 mmol/L (136-145); UREA NITROGEN, BLOOD 57 mg/dL (8-21); WHITE BLOOD COUNT (AUTO) 8.6 K/uL (4.8-10.8)
[2018-08-22 10:30] LABS: BASOPHILS % (AUTO) 0.1 % (0.0-2.0); EOSINOPHILS % (AUTO) 4.8 % (0.0-4.0); LYMPHOCYTES % (AUTO) 3.6 % (20.5-51.5); MONOCYTES % (AUTO) 9.5 % (1.7-9.3)
[2018-08-22 10:31] LABS: EOSINOPHILS # (AUTO) 0.4 K/uL (0.0-0.4); LYMPHOCYTES # (AUTO) 0.3 K/uL (1.0-5.5); MONOCYTES # (AUTO) 0.8 K/uL (0.0-1.0); NEUTROPHILS # (AUTO) 7.1 K/uL (1.8-7.7)
[2018-08-22 10:34] LABS: INR 1.1 (0.80-1.20); PROTHROMBIN TIME 11.6 SECS (9.5-12.5)
[2018-08-22 10:45] LABS: ALANINE AMINOTRANSFERASE 38 U/L (12-78); ALBUMIN 3.2 g/dL (3.4-4.8); ASPARTATE AMINOTRANSFERASE 34 U/L (10-37); TOTAL BILIRUBIN 0.8 mg/dL (0.0-1.0)
[2018-08-22] MEDS ORDERED: ASPIRIN 81 MG TAB.CHEW PO ONE (11:00)
[2018-08-22] MEDS ORDERED: ALBUTEROL SULFATE 0.083% 2.5 MG/3 ML VIAL.NEB IH ONE (11:15)
[2018-08-22] MEDS ORDERED: IPRATROPIUM BROM 0.5 MG/2.5 ML VIAL.NEB (ATROVENT) IH ONE (11:15)
[2018-08-22] MEDS ORDERED: VANCOMYCIN HCL 1,000 MG in D5W 250 ML IV ONE (11:45)
[2018-08-22] MEDS ORDERED: PIPERACILLIN/TAZO 3.38 GM in D5W 50 ML IV ONE (11:45)
[2018-08-22] MEDS ORDERED: NS 1000 ML IV.SOLN IV ONE (11:45)
[2018-08-22] MEDS ORDERED: ASPIRIN 81 MG TAB.CHEW ONE (11:53)
[2018-08-22] MEDS ORDERED: PIPERACILLIN/TAZOBACTAM 3.375 GM/VIAL (ZOSYN) IV ONE (12:16)
[2018-08-22] MEDS ORDERED: VANCOMYCIN HCL 1000 MG/VIAL IV ONE (12:17)
--- NOTE | 2018-08-22 12:20 | NUR ---
Admission Note Received patient from ER with diagnosis of pneumonia and hypoxia. Initial Plan of Care discussed-patient verbalized understanding. Family at bedside. Oriented to room, call light, pain management and safety. Addendum: 08/22/18 at 1234 by Merry Connell RN received pt at 1234
[2018-08-22] MEDS ORDERED: TYLENOL PO SCH (12:30)
--- NOTE | 2018-08-22 12:37 | NUR ---
CONSULTATION PAGED REASON FOR CONSULTATION:RF WAS CONSULT CALLED?Y PERSON WHO WAS NOTIFIED:EXCHANGE CONSULTING PHYSICIAN:LOU AGEE BED MANAGER SPECIALTY:PULMONARY BED MANAGER PHONE NUMBER:[phone] ORDERING PHYSICIAN:KAVON RENDON
--- NOTE | 2018-08-22 12:40 | NUR ---
Patient will be admitted to [facility]. Admitted to Tele unit. Will go to room 103A. Belongings list completed. Summary report printed. Report will be given at bedside to Merry CHEUNG.
--- NOTE | 2018-08-22 12:40 | NUR ---
rounds rec patient in the room accompanied by family. awake alert with hob slightly elevated. o2 at 2 liters via nasal cannula. resp easy and unlabored. no sob noted. bed to the lowest position. call light within reached and knows when to call for assistance.
[2018-08-22] MEDS ORDERED: DEXTROSE 50% JECT 50 ML DISP.SYRIN IVP PRN (12:45)
[2018-08-22] MEDS ORDERED: LACTULOSE 20 GM/30 ML UDC PO SCH (12:45)
[2018-08-22] MEDS ORDERED: INSULIN REGULAR, HUMAN 100 UNITS/ML, 10 ML VIAL (novoLIN R) SUBCUT PRN (12:45)
[2018-08-22] MEDS ORDERED: MINERAL OIL 133 ML ENEMA RC ONE ×2 (12:45→18:30)
--- NOTE | 2018-08-22 12:45 | NUR ---
CONSULTATION PAGED REASON FOR CONSULTATION:RF WAS CONSULT CALLED?Y PERSON WHO WAS NOTIFIED:VITOR CONSULTING PHYSICIAN:BARON FERREIRA (FAY NAPIER HAND BLOCKER) DANCE MASTER SPECIALTY:NEPHROLOGY DANCE MASTER PHONE NUMBER:[phone] ORDERING PHYSICIAN:KAVON RENDON
[2018-08-22 12:59] VITALS: BP_SYST 114
--- NOTE | 2018-08-22 15:38 | NUR ---
CONSULTATION CANCELED [place] KID[facility] SPECIALIST CALLED AT [phone] SPOKE WITH ARABELLA TO CANCEL THE CONSULTATION.
--- NOTE | 2018-08-22 15:59 | NUR ---
CONSULTATION PAGED REASON FOR CONSULTATION:ELEVATES TROPONIN WAS CONSULT CALLED?Y PERSON WHO WAS NOTIFIED:AMBER CONSULTING PHYSICIAN:LIYA NAZARIO NATURE PHOTOGRAPHER SPECIALTY:CARDIO NATURE PHOTOGRAPHER PHONE NUMBER:[phone] REQUESTING PHYSICIAN:RONAL PENA
--- NOTE | 2018-08-22 16:02 | NUR ---
rounds seen by dr galvan and with orders.
[2018-08-22 16:10] VITALS: BP_SYST 115
[2018-08-22] MEDS: LACTULOSE 20 GM/30 ML UDC PO SCH ×2 (17:09→20:46)
[2018-08-22] MEDS: WARFARIN SODIUM 5 MG TABLET PO SCH (17:15)
[2018-08-22] MEDS: PIPERACILLIN/TAZO 2.25G/DEX-IS 50 ML IV SCH ×2 (17:18→23:10)
[2018-08-22] MEDS ORDERED: DIPHENHYDRAMINE INJ 50 MG/ML VIAL IVP PRN (17:45)
[2018-08-22] MEDS ORDERED: ONDANSETRON HCL 4 MG/2 ML VIAL IVP PRN (17:45)
[2018-08-22] MEDS: HYDROmorphone 1 MG INJ. 1 MG/ML AMPUL IVP PRN ×2 (18:12→22:04)
--- NOTE | 2018-08-22 18:15 | NUR ---
spoke with dr sharma re troponin0.389
--- NOTE | 2018-08-22 18:20 | NUR ---
closing notes pt was medicated for pain as per dr mac. resting comfortably with family in the room. denies pain. no sob noted. bed to the lowest position and side rails up and locked.
--- NOTE | 2018-08-22 19:25 | NUR ---
CHANGE OF SHIFT: pt. awake, pt. and daughter at bedside. IV antibiotic still infusing via left forearm. noted both arms ,skin with multiple bruising. demario cath on rt. upper chest for hemodialysis, schedule tomorrow. pt. still has not move his bowel. O2 @ 2l/nc . remind to use call light for help.
--- NOTE | 2018-08-22 20:15 | NUR ---
NOTES: pt. sleeping, awakened, verbally responsive, moves all extremities. monitoring analyst shows sinus rhythm with inverted T wave. pt. on hemodialysis. IV lock on left forearm. call light within reach. safety measures observed. side rails up, bed alarm on.
[2018-08-22] MEDS: CALCIUM ACETATE 667 MG CAP PO SCH (20:46)
[2018-08-22] MEDS: DOCUSATE SODIUM 100 MG CAPSULE PO SCH (20:46)
[2018-08-22] MEDS: TAMSULOSIN HCL 0.4 MG CAP PO SCH (20:53)
[2018-08-22] MEDS: TEMAZEPAM 7.5 MG CAPSULE PO SCH (20:59)
--- NOTE | 2018-08-22 22:05 | NUR ---
NOTES: pt. moaning for c/o pain on his sacrum/anal area, medicated with IV Dilaudid as ordered. repositioned for comfort. due po meds taken. call light within reach.
[2018-08-22 23:57] VITALS: BP_SYST 112
--- NOTE | 2018-08-23 00:15 | NUR ---
NOTES: dozing on and off, occasionally wakes up about his pain on his sacral/anal area. No BM yet, inspite of all meds for stool given.
--- NOTE | 2018-08-23 00:57 | NUR ---
NOTES: raquel care done by LOS Costa, with only smear, still c/o of his anal area, triad cream applied. no redness noted. repositioned, been moaning, informed pt. IV pain med not due yet for another hour.kept warm and comfortable. condition observed.
[2018-08-23] MEDS: HYDROmorphone 1 MG INJ. 1 MG/ML AMPUL IVP PRN ×5 (02:17→20:51)
--- NOTE | 2018-08-23 02:34 | NUR ---
NOTES: medicated for c/o pain, IV site leaking. been moaning and groaning.
--- NOTE | 2018-08-23 03:06 | NUR ---
NOTES: pt. checked, sleeping, stopped moaning and groaning. condition observed.
--- NOTE | 2018-08-23 05:05 | NUR ---
NOTES: pt. already awake, starts moaning and groaning, but dozing on and off, not due for pain medication. had small amts of dark stool, raquel care done by WASHTUB WORKER HELPER, pt. able to help turn. IV site noted leaking again. rt. great toe with dressing intact.
--- NOTE | 2018-08-23 05:25 | NUR ---
CONSULTATION PAGED/CALLED Reason for Consultation: AMI Person Who was Notified: LYN Consulting Physician: DR. PINEDA Cst Specialty: CARDIO Ordering Physician: DR. CUTLER
--- NOTE | 2018-08-23 05:28 | NUR ---
CONSULTATION PAGED/CALLED Reason for Consultation: FECAL IMPACTION Person Who was Notified: LYN Consulting Physician: DR. NOLASCO Transition Program Manager Specialty: GI Ordering Physician: DR. CUTLER
[2018-08-23] MEDS: PIPERACILLIN/TAZO 2.25G/DEX-IS 50 ML IV SCH ×4 (06:05→23:47)
--- NOTE | 2018-08-23 06:15 | NUR ---
NOTES: IV site leaking, restarted another IV site on left hand gauge #22, resume IV antibiotic due. dressing on rt.great toe changed and picture taken, both feet appears dry and flaky. both arms multiple bruising. reinforced demario site. had moderate amt. of bm. kept clean and dry.
--- NOTE | 2018-08-23 06:47 | NUR ---
CLOSING NOTES; pretty calm, needs further care and observation. schedule for hemodialysis. CXR done at bedside. safety measures observed, risk for fall, bed rest maintained. will endorse to day shift.
--- NOTE | 2018-08-23 06:57 | NUR ---
Nutrition Update Daniel Scale 14 noted. Pt admitted for Pneumonia, Hypoxia Diet: [facility] diet BMI: 22.5 kg/m2 RD to follow per nutrition care standards.
[2018-08-23 07:08] LABS: INR 1.1 (0.80-1.20); PROTHROMBIN TIME 11.5 SECS (9.5-12.5)
[2018-08-23 07:58] LABS: HEMATOCRIT 35.2 % (36-54); HEMOGLOBIN 11.1 g/dL (14.0-18.0); MEAN CORPUSCULAR HEMOGLOBIN 32 pg (27-31); MEAN CORPUSCULAR HGB CONC 32 % (32-36); MEAN CORPUSCULAR VOLUME 100 fL (79.0-98.0); WHITE BLOOD COUNT (AUTO) 7.3 K/uL (4.8-10.8)
[2018-08-23 07:59] LABS: BASOPHILS % (AUTO) 0.2 % (0.0-2.0); EOSINOPHILS # (AUTO) 0.1 K/uL (0.0-0.4); EOSINOPHILS % (AUTO) 1.4 % (0.0-4.0); LYMPHOCYTES # (AUTO) 0.3 K/uL (1.0-5.5); LYMPHOCYTES % (AUTO) 4.2 % (20.5-51.5); MONOCYTES # (AUTO) 0.7 K/uL (0.0-1.0); MONOCYTES % (AUTO) 9.5 % (1.7-9.3); NEUTROPHILS # (AUTO) 6.2 K/uL (1.8-7.7); NEUTROPHILS % (AUTO) 84.7 % (40.0-70.0); PLATELET COUNT (AUTO) 96 K/uL (130-430); RED CELL DISTRIBUTION WIDTH 15.8 % (9.0-15.0)
--- NOTE | 2018-08-23 08:00 | NUR ---
rounds rec patient asleep but arousable to stimuli. ivl on the l hand intact. no infiltration noted. resp[ easy and unlabored. bed to the lowest position and side rails up and locked. call light within reached and knows when to call for assistance. will continue to monitor patient.
[2018-08-23 08:05] LABS: SODIUM SERUM 131 mmol/L (136-145)
[2018-08-23 08:06] LABS: ANION GAP 8 (5-15); CALCIUM 8.6 mg/dL (8.4-11.0); CHLORIDE 96 mmol/L (98-107); CREATININE 3.94 mg/dL (0.55-1.30); GLUCOSE 149 mg/dL (70-99); POTASSIUM 5.6 mmol/L (3.5-5.1); TOTAL BILIRUBIN 0.8 mg/dL (0.0-1.0); UREA NITROGEN, BLOOD 63 mg/dL (8-21)
[2018-08-23 08:07] LABS: ALANINE AMINOTRANSFERASE 34 U/L (12-78); ALBUMIN 3.1 g/dL (3.4-4.8); ASPARTATE AMINOTRANSFERASE 31 U/L (10-37); PHOSPHORUS 4.1 mg/dL (2.7-4.5); TRIGLYCERIDES 111 mg/dL (30-150)
[2018-08-23 08:08] LABS: CHOLESTEROL 117 mg/dL (<200); HDL CHOLESTEROL 48 mg/dL (>45); LDL CHOLESTEROL 51 mg/dL (<100); LIPASE 181 U/L (73-393)
[2018-08-23 08:24] VITALS: BP_SYST 121
[2018-08-23] MEDS: CARVEDILOL 3.125 MG TABLET (COREG) PO SCH ×2 (09:00→20:45)
[2018-08-23] MEDS ORDERED: TAMSULOSIN HCL 0.4 MG CAP PO SCH (09:00)
[2018-08-23] MEDS ORDERED: NON-FORMULARY MEDICATION (Ferric Citrate 210 MG) PO SCH (09:00)
[2018-08-23] MEDS ORDERED: MINERAL OIL 30 ML UDC PO ONE (09:30)
[2018-08-23] MEDS: CALCIUM ACETATE 667 MG CAP PO SCH ×2 (10:21→20:41)
[2018-08-23] MEDS: ATORVASTATIN 10 MG TABLET PO SCH (10:21)
[2018-08-23] MEDS: ASPIRIN 81 MG TAB.CHEW PO SCH (10:21)
[2018-08-23] MEDS: DOCUSATE SODIUM 100 MG CAPSULE PO SCH ×2 (10:21→20:42)
[2018-08-23] MEDS: LACTULOSE 20 GM/30 ML UDC PO SCH ×3 (10:22→20:41)
--- NOTE | 2018-08-23 10:30 | NUR ---
rounds echo cardio being done at bedside. no sob noted.
--- NOTE | 2018-08-23 11:05 | NUR ---
WOUND EVALUATION: Late note for 1105 secondary to patient care. Wound Consult received from Dr. Bolaños. Thank you, Dr. Bolaños, for the consult. Patient received in a Jan Bed with an IsoFlex SAMUEL mattress, awake, alert, and oriented x 3, forgetful. Patient is unable to turn in bed independently. Daniel Score is a 14. 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 Recent labs: WBC 7.3, RBC 3.50, hemoglobin 11.1, hematocrit 35.2, platelets 96, sodium 131, potassium 5.6, chloride 96, BUN 63, creatinine 3.94, glucose 149, alkaline phosphatase 166, albumin 3.1. Microbiology: Culture results 2 in progress. MRSA screen results in progress. Intrinsic factors that delay wound healing: COPD, hyperglycemia, Diabetes Mellitus Type II, hypoalbuminemia. Extrinsic factors that delay wound healing: Decreased mobility. Wound Assessment: 1. Right lateral great toe: Ischemic Wound, complicated by Diabetes Mellitus, present on admission. Wound bed has 50% pink tissue, 40% white tissue, 10% yellow eschar, 5% black tissue. No odor, no drainage. Ricarda-wound has dry, scaly, flaky skin. Bilateral feet are cold to the touch. Wound measures 3.5 cm x 2.0 cm. Recommend: Cleanse wound with normal saline. Apply sure prep to periwound. Apply Venelex ointment to wound bed and periwound. Cover with foam dressing. Perform wound care daily, and as needed for dressing soiling or dislodgment. Also recommend: Encourage and assist patient as needed with repositioning every 2 hours with pillow support, and off-load pressure areas with pillows for pressure re-distribution. Offload, elevate and float bilateral heels with one pillow lengthwise at all times. Perform skin care and monitor skin integrity Q shift. Use moisture barrier cream on buttocks and other moisture susceptible areas QID and as needed for soiling.
--- NOTE | 2018-08-23 11:12 | NUR ---
rounds dialysis in progress at the bedside. no sob noted.
[2018-08-23 12:27] VITALS: BP_SYST 110
--- NOTE | 2018-08-23 13:30 | NUR ---
rounds dialysis was completed and no untoward reaction noted. was seen by dr mac.
[2018-08-23] MEDS ORDERED: BALSAM PERU/CASTOR OIL 60 GM OINT...G. TP ONE (14:45)
--- NOTE | 2018-08-23 15:30 | NUR ---
rounds pt had a large amount of bm . pt was cleaned and kept dry. no osb noted.
--- NOTE | 2018-08-23 16:25 | NUR ---
seen by dr galvan .
[2018-08-23 17:03] VITALS: BP_SYST 122
[2018-08-23] MEDS: WARFARIN SODIUM 5 MG TABLET PO SCH (18:41)
--- NOTE | 2018-08-23 19:25 | NUR ---
CHANGE OF SHIFT; pt. awake, with family at bedside. in no acute distress. pt. had hemodialysis today via rt. upper chest demario cath. noted multiple bruising on both arms. IV site on left hand. safety measures observed, risk for fall, bed alarm on, side rails up. reminded about pt. about urine specimen needed when he voids. on semi-fowlers position, call light within reach.
[2018-08-23 20:00] VITALS: BP_SYST 105
--- NOTE | 2018-08-23 20:00 | NUR ---
NOTES: pt. more alert tonight, oriented and verbally responsive and follows simple commands. IVF via left hand for IV antibiotic. . Lb cath via rt. upper chest. cardiac pattern on sinus rhythm. call light within reach.
[2018-08-23] MEDS: TEMAZEPAM 7.5 MG CAPSULE PO SCH (20:41)
[2018-08-23] MEDS: MINERAL OIL 30 ML UDC PO SCH (20:41)
[2018-08-23] MEDS: TAMSULOSIN HCL 0.4 MG CAP PO SCH (20:42)
--- NOTE | 2018-08-23 20:55 | NUR ---
NOTES: due po meds taken well. medicated with IV Dilaudid fro c/o sacral/anal pain 02/11, repositioned for comfort, kept warm with blanket. call light within reach and his cell phone. pt. needs attended. Addendum: 08/23/18 at 2120 by Viviana Estevez RN BS checked 147, no sliding scale coverage, had some snack brought by his family.
--- NOTE | 2018-08-23 22:00 | NUR ---
NOTES: pt. sleeping, noted relief from pain. condition observed.
[2018-08-23 23:32] VITALS: BP_SYST 117
--- NOTE | 2018-08-23 23:45 | NUR ---
NOTES: pt. checked and sleeping, condition observed, continue to monitor.
--- NOTE | 2018-08-24 01:00 | NUR ---
NOTES: pt. awakened, feeling hungry, gave turkey sandwich and cranberry juice. needs attended.
--- NOTE | 2018-08-24 02:04 | NUR ---
NOTES: pt. feeling better after eating. repositioned for comfort. kept warm and comfortable. in no distress.
[2018-08-24] MEDS: HYDROmorphone 1 MG INJ. 1 MG/ML AMPUL IVP PRN ×3 (02:44→13:13)
--- NOTE | 2018-08-24 02:51 | NUR ---
NOTES: pt. still awake, medicated with IV Dilaudid for c/o sacral/anal pain 02/11. repositioned. IV patent, flushing good.
--- NOTE | 2018-08-24 04:03 | NUR ---
NOTES: pt. awakened, due am care done, full of crumbs when he ate earlier.
--- NOTE | 2018-08-24 05:39 | NUR ---
NOTES: pt. starts moaning and groaning again, informed pain med is not due yet. due am care done, had bm. kept clean and dry. rt. toe dressing intact.
[2018-08-24] MEDS: PIPERACILLIN/TAZO 2.25G/DEX-IS 50 ML IV SCH ×2 (06:21→11:53)
[2018-08-24 06:29] LABS: INR 1.2 (0.80-1.20); PROTHROMBIN TIME 12.2 SECS (9.5-12.5)
--- NOTE | 2018-08-24 06:37 | NUR ---
CLOSING NOTES; pt. BS checked 160. due IV antibiotic infused, IV site patent. another cranberry juice given per pt. request. awake, alert but appears to be confused at times. for further care and assistance, will endorse to day shift. kept O2 @ 2l/nc. Lb cath intact with some slight blood on dressing. multiple bruising on both arms. keep heels off bed with pillows, both feet appears dry and flaky. call light within reach. bed alarm on, side rails up, low position. no urine output for the night.
[2018-08-24 06:38] LABS: ANION GAP 8 (5-15); CALCIUM 7.9 mg/dL (8.4-11.0); CHLORIDE 99 mmol/L (98-107); CREATININE 3.44 mg/dL (0.55-1.30); GLUCOSE 170 mg/dL (70-99); SODIUM SERUM 135 mmol/L (136-145); UREA NITROGEN, BLOOD 46 mg/dL (8-21)
[2018-08-24 07:57] LABS: HEMATOCRIT 34.1 % (36-54); HEMOGLOBIN 10.9 g/dL (14.0-18.0); RED BLOOD CELL COUNT(AUTO) 3.42 MIL/uL (4.2-6.2); WHITE BLOOD COUNT (AUTO) 5.8 K/uL (4.8-10.8)
[2018-08-24 07:58] LABS: MEAN CORPUSCULAR HEMOGLOBIN 32 pg (27-31); MEAN CORPUSCULAR HGB CONC 32 % (32-36); MEAN CORPUSCULAR VOLUME 100 fL (79.0-98.0); PLATELET COUNT (AUTO) 97 K/uL (130-430); RED CELL DISTRIBUTION WIDTH 15.3 % (9.0-15.0)
[2018-08-24 07:59] LABS: BASOPHILS % (AUTO) 0.2 % (0.0-2.0); EOSINOPHILS % (AUTO) 5.2 % (0.0-4.0); LYMPHOCYTES % (AUTO) 9.2 % (20.5-51.5); MONOCYTES % (AUTO) 13.6 % (1.7-9.3); NEUTROPHILS % (AUTO) 71.8 % (40.0-70.0)
[2018-08-24 08:00] LABS: EOSINOPHILS # (AUTO) 0.3 K/uL (0.0-0.4); LYMPHOCYTES # (AUTO) 0.5 K/uL (1.0-5.5); MONOCYTES # (AUTO) 0.8 K/uL (0.0-1.0); NEUTROPHILS # (AUTO) 4.2 K/uL (1.8-7.7)
[2018-08-24] MEDS ORDERED: WARFARIN SODIUM 3 MG TABLET PO SCH (08:01)
[2018-08-24 08:02] VITALS: BP_SYST 111
--- NOTE | 2018-08-24 08:10 | NUR ---
OPENING NOTE patient resting in bed A&O x4, patient denies any acute distress or pain at this time, breathing is even and unlabored on 2L nasal cannula, educated patient on plan of care and call light system, will continue to monitor, safety precautions in place, call light within reach.
[2018-08-24] MEDS: DOCUSATE SODIUM 100 MG CAPSULE PO SCH (08:41)
[2018-08-24] MEDS: ATORVASTATIN 10 MG TABLET PO SCH (08:41)
[2018-08-24] MEDS: ASPIRIN 81 MG TAB.CHEW PO SCH (08:41)
[2018-08-24] MEDS: CALCIUM ACETATE 667 MG CAP PO SCH (08:41)
[2018-08-24] MEDS: LACTULOSE 20 GM/30 ML UDC PO SCH ×2 (08:42→15:25)
[2018-08-24] MEDS: CARVEDILOL 3.125 MG TABLET (COREG) PO SCH (08:42)
[2018-08-24] MEDS: MINERAL OIL 30 ML UDC PO SCH (08:42)
[2018-08-24] MEDS ORDERED: BALSAM PERU/CASTOR OIL 60 GM OINT...G. TP SCH (09:00)
--- NOTE | 2018-08-24 10:11 | NUR ---
NOTES patient is resting in bed watching tv, patient denies any acute distress, pain is controlled at this time, breathing is even and unlabored on 2L nc, will continue to monitor, safety precautions in place, call light within reach.
[2018-08-24 11:19] VITALS: BP_SYST 108
--- NOTE | 2018-08-24 11:45 | NUR ---
BLOOD SUGAR IS 182 AT THIS TIME, NO COVERAGE NEEDED PER SLIDING SCALE ORDERED BY MD.
--- NOTE | 2018-08-24 14:05 | NUR ---
NOTES PATIENT IS RESTING IN BED, PAIN IS CONTROLLED AT THIS TIME, BREATHING IS EVEN AND UNLABORED ON 2L NC, NO ACUTE DISTRESS NOTED, WILL CONTINUE TO MONITOR, SAFETY PRECAUTIONS IN PLACE, CALL LIGHT WITHIN REACH.
[2018-08-24] MEDS ORDERED: IPRATROPIUM/ALBUTEROL SULFATE 3 ML AMPUL.NEB (DUONEB) INH ONE (15:15)
--- NOTE | 2018-08-24 15:20 | NUR ---
Dietitian Recommendations * Recommend CCHO, renal diet w/ Glucerna BID and Robbie BID (ONS and wound healing support provides an additional 620 kcal/day and 25 gm protein/day) LP, RD Please refer to Nutrition Assessment for details.
[2018-08-24 15:28] VITALS: BP_SYST 108
[2018-08-24] MEDS ORDERED: DOCU250C14 PO (15:33)
[2018-08-24] MEDS ORDERED: LEVO750T45 PO (15:35)
[2018-08-24] MEDS ORDERED: LACT10SO7 PO (15:36)
[2018-08-24] MEDS ORDERED: IPRA4AER INH (15:36)
[2018-08-24] MEDS ORDERED: HYDR2TAB4 PO (15:38)
[2018-08-24] MEDS ORDERED: HYDROMORPHONE (15:38)
--- NOTE | 2018-08-24 16:25 | NUR ---
D/C Patient Patient given medication reconciliation form and D/C instructions. Exit Care provided. Patient verbalized understanding. MD discussed with patient the results and treatment provided. Ambulatory with steady gait for discharge to home. Patient in stable condition, ID band removed. IV catheter removed, intact and dressing applied, no active bleeding. Rx of written prescriptions given. Patient educated on pain management. All belongings sent with patient.
--- NOTE | 2018-08-27 16:04 | NUR ---
DC Planning: Late HH arrangement: order dc home with HH for disease management and safety issues. F/U with his PCP and HD center in 2 days. Per pt's spouse the pt. is under [facility] services. Lenore Serna, spouse # [phone]. >> CM faxed the referral package and dc order to Carolyn, at [facility] to resume the services. to fax # [phone], tel # [phone]. Addendum: 08/27/18 at 1636 by Naomi Pappas RN Confirmed accepted the service, per Carolyn , visiting nurse is scheduled to visit the pt. tomorrow. Message left /notified Lenore Yu/dtr of the above. # [phone].
--- NOTE | 2018-09-03 10:16 | NUR ---
Discharge Follow Up Phone Call Circular Ripsaw Operator phoned patient, , and patient's , Lenore, , on 08/28/18, 08/29/18, and 09/02/18, and left voicemail messages with reminder to make follow up appointments, offer of assistance and Social Service contact information. No further calls will be made.
== END 2018-08-24 16:10 | disposition home health service (06) | DRG 871 ==
LOC: SED 09:00 → STU 11:58
PROVIDERS: ADMIT Internal Medicine; ATTEND Internal Medicine
PROC: 5A1D70Z Performance of Urinary Filtration, Intermittent, Less than 6 Hours Per Day (ICD-10-PCS; principal; 2018-08-23)
DX: A41.9 Sepsis, unspecified organism (principal); J18.9 Pneumonia, unspecified organism; N18.6 End stage renal disease; I50.33 Acute on chronic diastolic (congestive) heart failure; E44.1 Mild protein-calorie malnutrition; J44.0 Chronic obstructive pulmonary disease with (acute) lower respiratory infection; I13.2 Hypertensive heart and chronic kidney disease with heart failure and with stage 5 chronic kidney disease, or end stage renal disease; J44.1 Chronic obstructive pulmonary disease with (acute) exacerbation; E11.52 Type 2 diabetes mellitus with diabetic peripheral angiopathy with gangrene; J96.10 Chronic respiratory failure, unspecified whether with hypoxia or hypercapnia; R18.8 Other ascites; D69.6 Thrombocytopenia, unspecified; R16.0 Hepatomegaly, not elsewhere classified; K56.41 Fecal impaction; D63.8 Anemia in other chronic diseases classified elsewhere; I25.5 Ischemic cardiomyopathy; I25.10 Atherosclerotic heart disease of native coronary artery without angina pectoris; E78.5 Hyperlipidemia, unspecified; G89.4 Chronic pain syndrome; K80.20 Calculus of gallbladder without cholecystitis without obstruction; N20.0 Calculus of kidney; E11.22 Type 2 diabetes mellitus with diabetic chronic kidney disease; Z88.8 Allergy status to other drugs, medicaments and biological substances; Z79.82 Long term (current) use of aspirin; Z99.2 Dependence on renal dialysis; Z91.11 Patient's noncompliance with dietary regimen; Z79.84 Long term (current) use of oral hypoglycemic drugs; I25.2 Old myocardial infarction; Z86.73 Personal history of transient ischemic attack (TIA), and cerebral infarction without residual deficits; Z68.22 Body mass index [BMI] 22.0-22.9, adult
CPT/HCPCS: 36415; 71045; 74018; 80048; 80053; 80061; 82962; 83036; 83605; 83690-TC; 84100-TC; 84484; 85025; 85610-TC; 85730-TC; 87040-TC; 87081; 90935; 93005; 93306; 94640; 96361; 96365; 96367; 96368; 96375; 99285; G0378; J1170; J1815; J2270; J2405; J2543; J3370; J7030; J7613; J7620

== ENCOUNTER 2018-10-12 21:14 | Emergency (ER) | payer OTHER ==
[~2018-10-12] VITALS: Ht 172.7 cm; Wt 66.7 kg
[2018-10-12 21:14] VITALS: BP_SYST 128
[~2018-10-12 21:14] MED LIST changes: +ASPI-1155 PO; +DOCU-144 PO; +DOCU250C14 PO; +HYDR2TAB4 PO; +IPRA4AER INH; +LACT10SO7 PO; +LEVO750T45 PO; +LIP10 PO; +SSREG SUBCUT; +TYLENOL #4 PO
--- NOTE | 2018-10-12 21:14 | NUR ---
Patient to ER bed 2 to gown for evaluation. Side rails up.
--- NOTE | 2018-10-12 21:15 | NUR ---
Pt kept refusing to follow ED Staff commands. Poor historian regarding med hx and current medical condition. When staff asked if it's ok to have BP taken on the R arm, pt responded with a "yeah" but during cuff inflation, pt then stated that he was on HD with access on that arm; bradder and MD aware.
--- NOTE | 2018-10-12 21:20 | NUR ---
Pt BIBA to ED C/O SOB this evening. Pt denies fever, chills, nausea or vomiting. Pt denies chest pain. Pt denies cough. Pt used his inhaler with slight improvement in breathing. Pt got breathing treatment by EMS with improvement in SOB. Pt's med Hx: COPD. No other complaints and or injuries noted. VSS, no s/s of acute distress. Pt was however, uncooperative for the first 5 min of ED arrival. Resting on gurney with rails up
--- NOTE | 2018-10-12 21:22 | NUR ---
Portable X Ray bedside, Pt in stable condition
[2018-10-12] MEDS ORDERED: COR3.125 PO (21:35)
[2018-10-12] MEDS ORDERED: ALPR0.25 PO (21:36)
[2018-10-12] MEDS ORDERED: LEVA1.2527 NEB (21:37)
[2018-10-12] MEDS ORDERED: ALBU8.5H8 INH (21:38)
--- NOTE | 2018-10-12 21:38 | NUR ---
Dr. Simmons bedside for Pt eval
[2018-10-12] MEDS ORDERED: FERR210T PO (21:39)
[2018-10-12] MEDS ORDERED: INSU100V9 SQ (21:42)
[2018-10-12] MEDS ORDERED: methylPREDNISolone SOD SUCC/PF 62.5 MG/ML VIAL IVP ONE (21:45)
[2018-10-12] MEDS ORDERED: cefTRIAXone 1 GM in D5W 50 ML IV ONE (22:00)
[2018-10-12] MEDS ORDERED: cefTRIAXone 1 GM VIAL ONE (22:11)
--- NOTE | 2018-10-12 22:30 | NUR ---
IV Antibiotics well tolerated. Blood cx taken before adm
[2018-10-12 23:00] VITALS: BP_SYST 128
--- NOTE | 2018-10-12 23:00 | NUR ---
Patient given written and verbal discharge instructions and verbalizes understanding. ER MD discussed with patient the results and treatment provided. Patient in stable condition. ID arm band removed. IV catheter removed intact and dressing applied, no active bleeding. Rx of Prednisone and Doxycycline given. Patient educated on pain management and to follow up with PMD. Pain Scale 0/10. Opportunity for questions provided and answered. Medication side effect fact sheet provided.
--- NOTE | 2018-10-14 18:14 | NUR ---
Final C & S BC demonstrates MRSA. discussed with Dr. Johnson who indicated that this is likely skin contaiment. Attempted to contact to the patient to perform a well check. Patient did not answer, left voicemail to call back for further follow up.
== END 2018-10-12 23:00 | disposition home or self-care (01) ==
LOC: SED 21:14
DX: J18.9 Pneumonia, unspecified organism (principal); J44.1 Chronic obstructive pulmonary disease with (acute) exacerbation; J44.0 Chronic obstructive pulmonary disease with (acute) lower respiratory infection; E11.9 Type 2 diabetes mellitus without complications; I10 Essential (primary) hypertension; Z79.899 Other long term (current) drug therapy; Z88.8 Allergy status to other drugs, medicaments and biological substances
CPT/HCPCS: 36415; 71045; 87040; 87186; 96374; 99284; J0696; J2930; J7030; 99283

== ENCOUNTER 2018-11-08 18:03 | Inpatient (IN) | payer OTHER ==
[~2018-11-08] VITALS: Ht 175.3 cm; Wt 59.0 kg
[~2018-11-08 18:03] MED LIST changes: +ALBU8.5H8 INH; +ALPR0.25 PO; -ASPI-1155 PO; +COR3.125 PO; -DOCU250C14 PO; -HYDR2TAB4 PO; +INSU100V9 SQ; +LEVA1.2527 NEB; -LEVO750T45 PO; -SSREG SUBCUT; -TAMS0.4C96 PO; -TYLENOL-CODEINE PO
[2018-11-08] MEDS ORDERED: IPRATROPIUM/ALBUTEROL SULFATE 3 ML AMPUL.NEB (DUONEB) INH ONE ×2 (18:15→18:30)
[2018-11-08] MEDS ORDERED: methylPREDNISolone SOD SUCC/PF 62.5 MG/ML VIAL IM ONE (18:15)
[2018-11-08 18:16] VITALS: BP_SYST 123
--- NOTE | 2018-11-08 18:16 | NUR ---
Patient triaged and placed in ER Bed 1. MD notified of need for ER evaluation
--- NOTE | 2018-11-08 18:18 | NUR ---
DR TINSLEY at bedside for ER evaluation
--- NOTE | 2018-11-08 18:18 | NUR ---
Patient comes to ER via [facility] ambulance with complaint of SOB. Patient states he had a sudden onset of SOB more than his usual. Patient has history of CHF, Asthma, and ESRD. Patient connected to continuous monitoring and oxygen via Bipap. RT at bedside. No other complaint or injury at this time.
[2018-11-08] MEDS ORDERED: IPRATROPIUM/ALBUTEROL SULFATE 3 ML AMPUL.NEB (DUONEB) ONE (18:26)
[2018-11-08 18:42] LABS: BASOPHILS # (AUTO) 0.1 K/uL (0.0-0.2); BASOPHILS % (AUTO) 1.1 % (0.0-2.0); EOSINOPHILS # (AUTO) 0.8 K/uL (0.0-0.4); EOSINOPHILS % (AUTO) 8.9 % (0.0-4.0); HEMATOCRIT 39.4 % (36-54); HEMOGLOBIN 12.7 g/dL (14.0-18.0); LYMPHOCYTES # (AUTO) 0.5 K/uL (1.0-5.5); MEAN CORPUSCULAR HEMOGLOBIN 33 pg (27-31); MEAN CORPUSCULAR HGB CONC 32 % (32-36); MEAN CORPUSCULAR VOLUME 101 fL (79.0-98.0); MONOCYTES # (AUTO) 0.3 K/uL (0.0-1.0); MONOCYTES % (AUTO) 3.3 % (1.7-9.3); NEUTROPHILS # (AUTO) 7.1 K/uL (1.8-7.7); NEUTROPHILS % (AUTO) 80.7 % (40.0-70.0); PLATELET COUNT (AUTO) 158 K/uL (130-430); RED BLOOD CELL COUNT(AUTO) 3.91 MIL/uL (4.2-6.2); RED CELL DISTRIBUTION WIDTH 16.2 % (9.0-15.0); WHITE BLOOD COUNT (AUTO) 8.8 K/uL (4.8-10.8)
[2018-11-08 18:53] LABS: ANION GAP 10 (5-15); CALCIUM 8.7 mg/dL (8.4-11.0); CHLORIDE 97 mmol/L (98-107); CREATININE 2.95 mg/dL (0.55-1.30); GLUCOSE 144 mg/dL (70-99); SODIUM SERUM 136 mmol/L (136-145); UREA NITROGEN, BLOOD 23 mg/dL (8-21)
[2018-11-08 18:58] LABS: ALANINE AMINOTRANSFERASE 19 U/L (12-78); ALBUMIN 3.4 g/dL (3.4-4.8); ASPARTATE AMINOTRANSFERASE 29 U/L (10-37); TOTAL BILIRUBIN 1.2 mg/dL (0.0-1.0)
--- NOTE | 2018-11-08 19:20 | NUR ---
Tax Preparer at bedside for Xray
--- NOTE | 2018-11-08 20:00 | NUR ---
Pt states that he is DNR, ER MD Dr. Christina is aware. Pts daughter states that she filled out paperwork however, it is not in chart and she does not have a copy. DNR paperwork filled out and placed in chart.
[2018-11-08] MEDS ORDERED: LORA-258 PO (20:13)
[2018-11-08] MEDS ORDERED: INSU100V9 SQ (20:14)
[2018-11-08] MEDS ORDERED: PIPERACILLIN/TAZO 3.375 GM in NS 50 ML IV ONE (20:15)
[2018-11-08] MEDS ORDERED: ASPIRIN 81 MG TAB.CHEW PO ONE (20:15)
[2018-11-08] MEDS ORDERED: NACL 0.9% 2,000 ML IV ONE (20:15)
--- NOTE | 2018-11-08 20:15 | NUR ---
Medication reconciliation completed with information provided by family. Any prior medication reconciliation on file was reviewed and corrected.
[2018-11-08] MEDS ORDERED: PIPERACILLIN/TAZOBACTAM 3.375 GM/VIAL (ZOSYN) IV ONE ×2 (20:25→20:29)
--- NOTE | 2018-11-08 20:30 | NUR ---
Dr. Christina removed BiPAP and placed pt on 2L NC
[2018-11-08 20:46] LABS: INR 1.2 (0.80-1.20); PROTHROMBIN TIME 12.5 SECS (9.5-12.5)
--- NOTE | 2018-11-08 21:00 | NUR ---
Patient will be admitted to care of Dr. Justin. Admitted to Tele unit. Will go to room 135. Belongings list completed. Summary report printed. Report will be given at bedside.
--- NOTE | 2018-11-08 21:29 | NUR ---
ADMIT NOTE Received pt from ER to the floor with a diagnosis of resp. failure, chf, pneumonia. Admission process initiated. patient oriented to pain management, safety and call light-teach back done.
--- NOTE | 2018-11-08 21:29 | NUR ---
Transfer to Tele via ACLS protocol. Licensed nurse present. IV present no signs or symptoms of infiltration.
[2018-11-08] MEDS ORDERED: DOCUSATE SODIUM 100 MG CAPSULE PO PRN (21:45)
[2018-11-08] MEDS ORDERED: ACETAMINOPHEN/CODEINE 300 MG-30 MG TABLET PO PRN (21:45)
[2018-11-08] MEDS ORDERED: FUROSEMIDE 100 MG/10 ML VIAL IVP SCH (22:00)
[2018-11-08] MEDS ORDERED: DEXTROSE 50% JECT 50 ML DISP.SYRIN IVP PRN (22:00)
[2018-11-08 22:03] VITALS: BP_SYST 103
[2018-11-08] MEDS: IPRATROPIUM/ALBUTEROL SULFATE 3 ML AMPUL.NEB (DUONEB) INH PRN (22:29)
[2018-11-08] MEDS ORDERED: methylPREDNISolone SOD SUCC 40 MG/ML VIAL IVP SCH (23:00)
[2018-11-08] MEDS ORDERED: FUROSEMIDE 40 MG/4 ML VIAL ONE (23:01)
[2018-11-08] MEDS ORDERED: PIPERACILLIN/TAZOBACTAM 2.25 GM VIAL IV ONE (23:22)
[2018-11-08] MEDS ORDERED: AZITHROMYCIN 500 MG/VIAL (ZITHROMAX) IV ONE (23:22)
[2018-11-08 23:30] VITALS: BP_SYST 103
[2018-11-08] MEDS: AZITHROMYCIN 500 MG in NS 250 ML IV SCH (23:35)
--- NOTE | 2018-11-09 00:07 | NUR ---
ZITHROMAX 500 MG IVPB administer no adverse reaction noted patient verbally Responsive .
--- NOTE | 2018-11-09 00:08 | NUR ---
PHOTOS PICTURES TAKEN OF OPEN SKIN AREAS UPPER & LOWER EXTREMITIES PATIENT FREQUENT SCRATCHING BREAKING OPEN SKIN SHARP NAILS .
--- NOTE | 2018-11-09 00:11 | NUR ---
PHOTO PICTURE TAKEN OF SACRAL REDNESS & FOAM DRESSING APPLIED FOR PROTECTION .
--- NOTE | 2018-11-09 00:14 | NUR ---
PHOTO PICTURE TAKEN OF RIGHT GREATER TOE WOUND 60 % KENNEDY WOUND BED 20 % YELLOW TISSUE 20 % RED TISSUE NO ODER NO DRAINAGE .
--- NOTE | 2018-11-09 00:21 | NUR ---
CONSULTATION PAGED/CALLED Reason for Consultation: CARDIO Person Who was Notified: JASON Consulting Physician: MIRIAM GARCIA IS SERVER SECURITY ADMINISTRATOR Creamery Worker Specialty: CARDIO Ordering Physician: OMAYRA
--- NOTE | 2018-11-09 00:21 | NUR ---
CONSULTATION PAGED/CALLED Reason for Consultation: GLORY Person Who was Notified: JUAN Consulting Physician: JAGDISH Food And Beverage Attendant Specialty: Ordering Physician: OMAYRA
--- NOTE | 2018-11-09 00:22 | NUR ---
CONSULTATION PAGED/CALLED Reason for Consultation: RESP FAILURE Person Who was Notified: JASON Consulting Physician: ENE Surgery Consultant Specialty: PULMO Ordering Physician: OMAYRA
[2018-11-09 00:44] VITALS: BP_SYST 96
--- NOTE | 2018-11-09 01:23 | NUR ---
HEEL LIFT BOOT ( PT OWN ) APPLIED TO RIGHT FOOT , WOUNDS ARE NOTED / .
[2018-11-09] MEDS: PIPERACILLIN/TAZO 2.25G/DEX-IS 50 ML IV SCH ×4 (05:57→23:37)
--- NOTE | 2018-11-09 06:51 | NUR ---
REASON FOR CONSULT: CHF
--- NOTE | 2018-11-09 07:10 | NUR ---
Opening Note patient resting in bed, eyes closed, breathing unlabored and symmetrical, call light and bedside table left within reach, safety precautions in place, will continue to monitor
[2018-11-09 08:00] VITALS: BP_SYST 131
[2018-11-09] MEDS ORDERED: LEVALBUTEROL HCL NEB SCH (09:00)
[2018-11-09] MEDS: LACTULOSE 20 GM/30 ML UDC PO SCH (09:00)
[2018-11-09] MEDS ORDERED: methylPREDNISolone SOD SUCC 40 MG/ML VIAL IVP SCH (09:00)
[2018-11-09] MEDS: CALCIUM ACETATE 667 MG CAP PO SCH ×3 (09:18→17:12)
--- NOTE | 2018-11-09 09:30 | NUR ---
Medication educated patient regarding meds, verbalized understanding, refused lactulose, educated him on potential side effects of not receiving meds, verbalized understanding, tolerated meds well, requesting breathing treatment at this time, spoke with RT, no other needs for patient at this time, educated patient on use of call light for assistance, verbalized understanding, call light and bedside table left within reach, will continue to monitor
--- NOTE | 2018-11-09 10:40 | NUR ---
Patient Refusing SCDs at this time, stated he wore them all night and wants a break, educated him on importance of wearing SCDs, verbalized understanding, safety precautions in place, will continue to monitor
[2018-11-09 11:16] VITALS: BP_SYST 105
[2018-11-09] MEDS: INSULIN REGULAR, HUMAN 100 UNITS/ML, 10 ML VIAL (novoLIN R) SUBCUT PRN ×2 (11:43→20:49)
--- NOTE | 2018-11-09 12:30 | NUR ---
Patient resting in bed denies pain, daughter at bedside, no signs of distress, educated patient on use of call light for assistance, verbalized understanding, call light and bedside table left within reach, will continue to monitor
[2018-11-09] MEDS ORDERED: VANCOMYCIN HCL 1 GM/NS PREMIX 250 ML IV ONE (13:30)
--- NOTE | 2018-11-09 14:01 | NUR ---
CONSULTATION PAGED/CALLED Reason for Consultation: [] POSITIVE PRELIMINARY BLOOD CULTURE Person Who was Notified: [] DAY Consulting Physician: [] DR Miesha LIGHT Bellstand Attendant Specialty: [] ID Ordering Physician: [] DR CUTLER
--- NOTE | 2018-11-09 14:15 | NUR ---
Antibiotics hung at this time, educated patient regarding meds, verbalized understanding, IV site remains patent, receiving breathing tx, no other needs at this time, educated patient on use of call light for assistance, verbalized understanding, call light and bedside table left within reach, will continue to monitor
[2018-11-09] MEDS: IPRATROPIUM/ALBUTEROL SULFATE 3 ML AMPUL.NEB (DUONEB) INH SCH ×3 (14:51→19:54)
[2018-11-09 15:31] VITALS: BP_SYST 116
--- NOTE | 2018-11-09 15:50 | NUR ---
Dr. Juarez Rounds examined patient, will await MD orders
--- NOTE | 2018-11-09 16:10 | NUR ---
Dr. Juarez Called ordered dialysis for patient, safety supervisor to call MD regarding orders, will implement
--- NOTE | 2018-11-09 16:20 | NUR ---
Patient Refusing to get Dialysis refuses to sign consent, educated him on potential risks of not receiving dialysis, still refused, will inform Dr. Juarez
--- NOTE | 2018-11-09 17:08 | NUR ---
Spoke with Dr. Juarez informed him that patient refused dialysis today, verbalized understanding, stated to call [place] or public service administrator to inform them they do not have to come today, informed greenhouse grower Diana, verbalized understanding, stated she will let Judit know
[2018-11-09] MEDS: methylPREDNISolone SOD SUCC 40 MG/ML VIAL IVP SCH (17:13)
--- NOTE | 2018-11-09 17:27 | NUR ---
Blood Sugar Assessed no insulin needed per sliding scale, educated him regarding scheduled meds, verbalized understanding, tolerated well, IV site remains patent, he was assisted to meal tray, legs dangling, educated patient on use of call light for assistance, verbalized understanding, call light and bedside table left within reach, will continue to monitor
--- NOTE | 2018-11-09 18:45 | NUR ---
Closing Note patient resting in bed, awake and alert, no signs of distress or SOB noted, safety precautions remain in place, call light and bedside table left within reach, will endorse to material handler 2nd shift nurse
[2018-11-09 20:20] VITALS: BP_SYST 108
--- NOTE | 2018-11-09 20:20 | NUR ---
INITIAL NOTES: BEDSIDE REPORT DONE WITH AM RN EARLIER.PATIENT AWAKE ORIENTED X4.DENIES ANY PAIN NOR SOB. BREATHING TREATMENTS IN PROGRESS BY RT. ASKING FOR SLEEPING PILL. CALL LIGHT WITHIN REACH. BED IN LOW POSITION. HEEL BOOTS TO RIGHT FOOT ON. MOVES TOES FREELY. NO PAIN.SALINE LINE PATENT. GENERALIZED SKIN WITH DARK COLOR BRUISES,OLD SCRATCHES NO SKIN BREAKDOWNS.HAS SACRAL OPTIFOAM DRESSING FOR PROTECTION. BED ALARM ON.SINUS TACHYCARDIA. NO ECTOPY.
[2018-11-09] MEDS: LORazepam 1 MG TABLET PO SCH (20:42)
[2018-11-09] MEDS: TEMAZEPAM 7.5 MG CAPSULE PO SCH (20:42)
[2018-11-09] MEDS: CARVEDILOL 3.125 MG TABLET (COREG) PO SCH (20:43)
--- NOTE | 2018-11-09 20:50 | NUR ---
MEDS ADMIN: BLOOD SUGAR RESULT 257MG/DL. COVERED WITH 4 UNITS REGULAR INSULIN PER SLIDING SCALE. ALL DUE PO MEDS GIVEN WITHOUT DIFFICULTY.
--- NOTE | 2018-11-09 22:10 | NUR ---
RESTING QUITELY WITH EYES CLOSE,DENIES CHEST PAIN NOR SOB.
--- NOTE | 2018-11-09 23:40 | NUR ---
DUE ANTIBIOTICS GIVEN. IV LINE PATENT.
[2018-11-10] MEDS: AZITHROMYCIN 500 MG in NS 250 ML IV SCH (00:37)
[2018-11-10] MEDS: methylPREDNISolone SOD SUCC 40 MG/ML VIAL IVP SCH ×3 (00:37→16:58)
[2018-11-10 01:16] VITALS: BP_SYST 108
--- NOTE | 2018-11-10 01:35 | NUR ---
DUE IV MED GIVEN. NO DISTRESS.
--- NOTE | 2018-11-10 03:10 | NUR ---
PATIENT RESTING QUITELY WITH EYES CLOSE.
[2018-11-10] MEDS: PIPERACILLIN/TAZO 2.25G/DEX-IS 50 ML IV SCH (06:16)
[2018-11-10 06:46] LABS: BASOPHILS % (AUTO) 0.1 % (0.0-2.0); HEMATOCRIT 36.9 % (36-54); HEMOGLOBIN 11.7 g/dL (14.0-18.0); LYMPHOCYTES # (AUTO) 0.2 K/uL (1.0-5.5); LYMPHOCYTES % (AUTO) 2.4 % (20.5-51.5); MEAN CORPUSCULAR HEMOGLOBIN 33 pg (27-31); MEAN CORPUSCULAR HGB CONC 32 % (32-36); MEAN CORPUSCULAR VOLUME 102 fL (79.0-98.0); MONOCYTES # (AUTO) 0.2 K/uL (0.0-1.0); MONOCYTES % (AUTO) 1.6 % (1.7-9.3); NEUTROPHILS # (AUTO) 9.6 K/uL (1.8-7.7); NEUTROPHILS % (AUTO) 95.9 % (40.0-70.0); PLATELET COUNT (AUTO) 103 K/uL (130-430); RED BLOOD CELL COUNT(AUTO) 3.61 MIL/uL (4.2-6.2); RED CELL DISTRIBUTION WIDTH 16.4 % (9.0-15.0)
--- NOTE | 2018-11-10 06:57 | NUR ---
CLOSING: NO ACUTE CARDIOPULMONARY DISTRESS WHOLE SHIFT. SLEPT AT LONG INTERVALS. NO ECTOPY.ALL DUE MEDS GIVEN. ALL NEEDS WERE ATTENDED. CALL LIGHT WITHIN REACH. SAFETY MEASURES WERE IMPLEMENTED.
[2018-11-10 07:08] LABS: CALCIUM 8.6 mg/dL (8.4-11.0); CHLORIDE 97 mmol/L (98-107); GLUCOSE 181 mg/dL (70-99); POTASSIUM 5.2 mmol/L (3.5-5.1); SODIUM SERUM 133 mmol/L (136-145); UREA NITROGEN, BLOOD 54 mg/dL (8-21)
[2018-11-10] MEDS: IPRATROPIUM/ALBUTEROL SULFATE 3 ML AMPUL.NEB (DUONEB) INH SCH ×4 (07:18→19:06)
[2018-11-10 07:21] LABS: ANION GAP 12 (5-15)
[2018-11-10 08:00] VITALS: BP_SYST 116
--- NOTE | 2018-11-10 08:00 | NUR ---
AM NOTES SITTING AT THE EDGE OF THE BED EATING BREAKFAST. DENIES ANY CHEST PAIN, ON O2 3L, TOLERATING WELL. OCCASIONAL SHORT OF BREATH. NO ACUTE DISTRESS NOTED. SAFETY PRECAUTION OBSERVED. CALL LIGHT WITHIN REACH. WILL MONITOR.
[2018-11-10] MEDS: CALCIUM ACETATE 667 MG CAP PO SCH ×3 (08:38→16:45)
[2018-11-10] MEDS: CARVEDILOL 3.125 MG TABLET (COREG) PO SCH ×2 (08:39→20:48)
[2018-11-10] MEDS: LACTULOSE 20 GM/30 ML UDC PO SCH (08:39)
--- NOTE | 2018-11-10 09:42 | NUR ---
Nutrition Update Daniel Scale 15 noted. Pt admitted for respiratory failure, CHF, pneumonia. Diet: renal BMI: 19.1 kg/m2 RD to follow per nutrition care standards.
--- NOTE | 2018-11-10 10:33 | NUR ---
Notes In bed, talking to family at bedside. no distress noted. will continue to monitor.
[2018-11-10 11:18] VITALS: BP_SYST 99
[2018-11-10] MEDS: INSULIN REGULAR, HUMAN 100 UNITS/ML, 10 ML VIAL (novoLIN R) SUBCUT PRN ×2 (11:59→17:00)
[2018-11-10] MEDS ORDERED: cefTRIAXone 1 GM in D5W 50 ML IV SCH (12:00)
--- NOTE | 2018-11-10 13:16 | NUR ---
Dietitian Recommendations * Recommend renal, CCHO diet * Recommend daily PM snack (peanut butter and jelly sandwich) LP, RD Please refer to Nutrition Assessment for details.
--- NOTE | 2018-11-10 15:50 | NUR ---
Notes- In bed, resting. no distress noted. report given to Tara CHEUNG.
--- NOTE | 2018-11-10 15:51 | NUR ---
Assumed care of pt. Received SBAR report from endorsing nurse.
--- NOTE | 2018-11-10 16:26 | NUR ---
Page out to Dr. Youngblood. Spoke with exchange.
[2018-11-10 17:00] VITALS: BP_SYST 91
--- NOTE | 2018-11-10 17:19 | NUR ---
Page out to Dr. Justin. Spoke with exchange. Addendum: 11/10/18 at 1723 by Tara Mustafa RN Dr. Justin return call, no new orders.
--- NOTE | 2018-11-10 17:25 | NUR ---
Page out to Dr. Juarez, spoke with exchange
[2018-11-10] MEDS ORDERED: VANCOMYCIN HCL 750 MG in NS 250 ML IV SCH (18:00)
--- NOTE | 2018-11-10 19:10 | NUR ---
Endorsed plan of care to oncoming RN via SBAR.
[2018-11-10 19:45] VITALS: BP_SYST 110
--- NOTE | 2018-11-10 19:45 | NUR ---
INITIAL NOTE AT INITIAL ASSESSMENT, PATIENT IS RESTING IN BED, STABLE, NO SIGNS OF RESPIRATORY DISTRESS. PATIENT VERBALIZES NO PAIN. PLAN OF CARE FOR THE EVENING IS COMMUNICATED WITH THE PATIENT. CALL LIGHT- TEACH BACK IS SUCCESSFUL. BED IS LOCKED, ALARMED, AND AT THE LOWEST LEVEL. FALL, SAFETY, ISOLATION, AND RESPIRATORY PRECAUTIONS WILL BE IN PLACE THROUGHOUT THE SHIFT .
[2018-11-10] MEDS: LORazepam 1 MG TABLET PO SCH (20:45)
[2018-11-10] MEDS: TEMAZEPAM 7.5 MG CAPSULE PO SCH (20:45)
--- NOTE | 2018-11-10 21:00 | NUR ---
NOTE BLOOD SUGAR CHECK AT THIS TIME REQUIRES NO INSULIN COVERAGE PER SSI ORDERED BY MD. PATIENT IS RESTING IN BED, STABLE, NO SIGNS OF RESPIRATORY DISTRESS. CALL LIGHT WITHIN REACH. BED IS LOCKED, ALARMED, AND AT THE LOWEST LEVEL.
--- NOTE | 2018-11-10 23:00 | NUR ---
NOTE PATIENT IS RESTING IN BED, STABLE, NO SIGNS OF RESPIRATORY DISTRESS. HE VERBALIZES NO PAIN FOR DIFFICULTY BREATHING. CALL LIGHT WITHIN REACH. BED IS LOCKED, ALARMED, AND AT THE LOWEST LEVEL.
[2018-11-11] MEDS: AZITHROMYCIN 500 MG in NS 250 ML IV SCH (00:20)
[2018-11-11] MEDS: methylPREDNISolone SOD SUCC 40 MG/ML VIAL IVP SCH (00:20)
[2018-11-11 00:23] VITALS: BP_SYST 101
--- NOTE | 2018-11-11 00:30 | NUR ---
NOTE SCHEDULED MEDICATIONS ARE GIVEN AT THIS TIME. PATIENT IS REPOSITIONED FOR COMFORT. PATIENT IS RESTING IN BED, STABLE, NO SIGNS OF RESPIRATORY DISTRESS. CALL LIGHT WITHIN REACH. BED IS LOCKED, ALARMED, AND AT THE LOWEST LEVEL.
--- NOTE | 2018-11-11 01:25 | NUR ---
Patient receiving HHN: Per Respiratory therapist, he is giving breathing traetment to the patient who is sitting at the side of the bed , RT washed his hand and when he looked back at the patient, patient put himself in bed. Rt called for help and stated patient is not responding. Went to the room and noticed patient not breathing, unable to obtained heart rate, no response to tactile stimuli, looks so pale, pupils dilated and not responding to light and accommodation. Also no blood pressure obtained.
--- NOTE | 2018-11-11 01:31 | NUR ---
Patient is DNR: Patient is DNR, placed in monitor and asystole for two minutes. Patient placed in Proper body alignment.
[2018-11-11] MEDS: IPRATROPIUM/ALBUTEROL SULFATE 3 ML AMPUL.NEB (DUONEB) INH PRN (01:34)
--- NOTE | 2018-11-11 01:40 | NUR ---
Call placed to family: Call placed to the family and talked to the , stated will come [facility].
--- NOTE | 2018-11-11 01:53 | NUR ---
Call placed to [facility]: Call placed to [facility] and talked to Flavio and stated not a candidate as a donor and given
--- NOTE | 2018-11-11 01:58 | NUR ---
Call [facility]: Call placed to [facility] and talked to Messi, per her, not a case and no case number needed.
--- NOTE | 2018-11-11 02:20 | NUR ---
Talk to the family: Per patient's family they don't have arrangement with any mortuary. List of Mortuary given and stated the brother of the patient will do arrangement. Family agreed to put body to body hold while waiting for chosen Mortuary. Requested to call us once arranged. phone number .
--- NOTE | 2018-11-11 03:31 | NUR ---
Patient is DNR: Patient is DNR, placed in monitor and asystole for two minutes. Patient placed in Proper body alignment. Addendum: 11/11/18 at 0358 by Manisha Macias RN Right time for this note is 0016
== END 2018-11-11 01:31 | disposition expired ==
LOC: SED 18:03 → STU 21:12 → SMU 11-10 11:27
PROVIDERS: ADMIT Internal Medicine; ATTEND Internal Medicine
PROC: 5A09357 Assistance with Respiratory Ventilation, Less than 24 Consecutive Hours, Continuous Positive Airway Pressure (ICD-10-PCS; principal; 2018-11-08)
DX: T80.211A Bloodstream infection due to central venous catheter, initial encounter (principal); A41.2 Sepsis due to unspecified staphylococcus; I21.A1 Myocardial infarction type 2; N18.6 End stage renal disease; J15.9 Unspecified bacterial pneumonia; I50.33 Acute on chronic diastolic (congestive) heart failure; I13.2 Hypertensive heart and chronic kidney disease with heart failure and with stage 5 chronic kidney disease, or end stage renal disease; J44.0 Chronic obstructive pulmonary disease with (acute) lower respiratory infection; J44.1 Chronic obstructive pulmonary disease with (acute) exacerbation; E11.52 Type 2 diabetes mellitus with diabetic peripheral angiopathy with gangrene; I42.0 Dilated cardiomyopathy; J96.11 Chronic respiratory failure with hypoxia; Z66 Do not resuscitate; I46.9 Cardiac arrest, cause unspecified; Y83.8 Other surgical procedures as the cause of abnormal reaction of the patient, or of later complication, without mention of misadventure at the time of the procedure; I25.10 Atherosclerotic heart disease of native coronary artery without angina pectoris; I25.5 Ischemic cardiomyopathy; E11.42 Type 2 diabetes mellitus with diabetic polyneuropathy; G89.4 Chronic pain syndrome; K80.20 Calculus of gallbladder without cholecystitis without obstruction; N20.0 Calculus of kidney; F44.4 Conversion disorder with motor symptom or deficit; D63.8 Anemia in other chronic diseases classified elsewhere; E11.22 Type 2 diabetes mellitus with diabetic chronic kidney disease; J45.909 Unspecified asthma, uncomplicated; Z99.2 Dependence on renal dialysis; Z88.8 Allergy status to other drugs, medicaments and biological substances; Z86.73 Personal history of transient ischemic attack (TIA), and cerebral infarction without residual deficits; Z79.84 Long term (current) use of oral hypoglycemic drugs; Z99.81 Dependence on supplemental oxygen; Y92.89 Other specified places as the place of occurrence of the external cause; E78.5 Hyperlipidemia, unspecified; F17.200 Nicotine dependence, unspecified, uncomplicated; Y84.8 Other medical procedures as the cause of abnormal reaction of the patient, or of later complication, without mention of misadventure at the time of the procedure
CPT/HCPCS: 36415; 36600; 71045; 80048; 80053; 80202-TC; 82803-TC; 82962; 83605; 83880; 84484; 85025; 85610-TC; 85730-TC; 87040-TC; 87081; 87186-TC; 93005; 94640; 94660; 94760; 96365; 96372; 99285; G0378; J0456; J0696; J1030; J1815; J1940; J2543; J3370; J7040; J7050; J7060; J7620